=== PATIENT | male | born 1935 | race Caucasian/White ===

== ENCOUNTER 2017-03-24 08:20 | Inpatient (IN) | payer OTHER ==
[2017-03-18 12:28] LABS: BASOPHILS % 0.6 % (0.0-1.0); EOSINOPHILS # (AUTO) 0.2 (0.0-0.4); HEMOGLOBIN 10.1 g/dL (14.0-18.0); LYMPHOCYTES # (AUTO) 1.2 (1.0-3.2); LYMPHOCYTES % 23.7 % (18.0-39.1); MEAN CORPUSCULAR HEMOGLOBIN 39.9 pg (28-32); MEAN CORPUSCULAR HGB CONC 37.4 g/dL (31-35); MEAN CORPUSCULAR VOLUME 106.7 fL (81-99); MONOCYTES # (AUTO) 0.4 (0.2-0.8); MONOCYTES % 8.5 % (4.4-11.3); NEUTROPHILS # (AUTO) 3.2 (2.1-6.9); PLATELET COUNT 177 x10e3/uL (140-360); RED BLOOD COUNT 2.53 x10e6/uL (4.3-5.7); RED CELL DISTRIBUTION WIDTH 12.1 % (11.7-14.4)
[2017-03-18 12:45] LABS: ANION GAP 11.7 mmol/L (8-16); BLOOD UREA NITROGEN 11 mg/dL (7-26); BUN/CREATININE RATIO 13 (6-25); CALCIUM 9.6 mg/dL (8.4-10.2); CARBON DIOXIDE 30 mmol/L (22-29); CHLORIDE 105 mmol/L (98-107); CREATININE, SERUM 0.87 mg/dL (0.72-1.25); EST GLOMERULAR FILTRATION RATE > 60 ML/MIN (60-); GLUCOSE 132 mg/dL (74-118); POTASSIUM 4.7 mmol/L (3.5-5.1); SODIUM 142 mmol/L (136-145)
--- NOTE | 2017-03-18 13:00 | Diagnostic Imaging Report ---
PROCEDURE: Frontal and lateral views of the chest. COMPARISON: None. INDICATIONS: PREOPERATIVE CHEST XRAY FOR FISTULA REPAIR FINDINGS: Lines/tubes: None. Lungs: Limited by rotation and shallow inspiration. There is no evidence of pneumonia or pulmonary edema. Pleura: There is no pleural effusion or pneumothorax. Heart and mediastinum: Cardiac silhouette is mildly enlarged. Bones: No acute bony abnormality. Degenerative changes of the thoracic spine. IMPRESSION: 1. No acute cardiopulmonary disease. Dictated by: Robin Monroe M.D. on 03/18/2017 at 13:07 Electronically approved by: Robin Monroe M.D. on 03/18/2017 at 13:07
[~2017-03-24] VITALS: Ht 180.3 cm; Wt 103.5 kg
[2017-03-24] VITALS (26 sets, daily range): BP systolic 88–125; BP diastolic 46–66
[~2017-03-24 08:20] MED LIST: ACYCLOVIR200 MG PO; DOXAZOSIN MESYLA2 MG PO; DOXAZOSIN MESYLA8 MG PO; HEPARIN SOD/SOD CHLORIDE 0 ML ONE; LISINOPRIL10 MG PO; RANITIDINE HCL150 MG PO
[2017-03-24] MEDS: SODIUM CHLORIDE 0.9% 250ML IRRIG IR SCH ×3 (14:45→22:58)
[2017-03-24] MEDS ORDERED: ONDANSETRON HCL INJ 2 MG/ML VIAL IV PRN (14:45)
[2017-03-24] MEDS: PANTOPRAZOLE 40 MG 10ML VIAL IV SCH (15:00)
[2017-03-24] MEDS ORDERED: FENTANYL CITRATE/PF 100MCG/2 ML INJ ONE ×2 (15:26→18:32)
[2017-03-24] MEDS ORDERED: DORZOLAMIDE-TIM10 ML OP (16:57)
[2017-03-24] MEDS ORDERED: BRIMONIDINE TART5 ML OP (16:57)
[2017-03-24] MEDS ORDERED: LATANOPROST2.5 ML OP (16:57)
[2017-03-24] MEDS: PIPER-TAZ 3.375 GM 50 ML IV SCH ×2 (17:16→23:40)
[2017-03-24] MEDS: SODIUM CHLORIDE 0.9% 1000ML 1,000 ML IV SCH ×2 (17:16→23:19)
[2017-03-24] MEDS: HYDROMORPHONE 1MG/1ML INJ IV PRN ×2 (17:16→23:50)
[2017-03-24] MEDS ORDERED: DEXAMETHASONE SOD PHOS INJ 4 MG/ML VIAL ONE (18:04)
[2017-03-24] MEDS ORDERED: EPHEDRINE SULFATE INJ 50 MG/10 ML SYR ONE (18:04)
[2017-03-24] MEDS ORDERED: PHENYLEPHRINE HCL 1% 10 MG/ML VIAL ONE (18:04)
[2017-03-24] MEDS ORDERED: ONDANSETRON HCL INJ 2 MG/ML VIAL ONE (18:04)
[2017-03-24] MEDS ORDERED: CEFOXITIN SOD 1 GM VIAL ONE (18:04)
[2017-03-24] MEDS ORDERED: PROPOFOL IV EMULSION 10 MG/ML 20 ML VIAL ONE (18:04)
[2017-03-24] MEDS ORDERED: ROCURONIUM BROMIDE 10 MG/ML 5ML VIAL ONE (18:04)
[2017-03-24] MEDS ORDERED: SEVOFLURANE INHAL SOLN 250 ML PEN BTL ONE (18:04)
[2017-03-24] MEDS ORDERED: LIDOCAINE HCL 2% LOCAL INJ 5 ML SDV VIAL INJ ONE (18:04)
[2017-03-24] MEDS ORDERED: VASOPRESSIN INJ 20 UNIT/ML VIAL ONE (18:04)
[2017-03-24] MEDS: ACETAMINOPHEN 1000 MG/100 ML IV PRN (19:09)
[2017-03-24] MEDS: DORZOLAMIDE/TIMOLOL (OPTH SOL) 10 ML DRPETTE OP SCH (21:48)
[2017-03-24] MEDS: BRIMONIDINE TARTRATE (OPTH) 5 ML LIQD OP SCH (21:48)
[2017-03-24] MEDS: LATANOPROST(OPTH) 2.5 ML BTL OP SCH (21:48)
[2017-03-24] MEDS ORDERED: METOPROLOL TARTRATE INJ 1 MG/ML VIAL IV ONE (22:00)
[2017-03-25] VITALS (90 sets, daily range): BP systolic 83–121; BP diastolic 29–73
--- NOTE | 2017-03-25 01:46 | Consultation ---
DATE OF CONSULTATION: March 24, 2017 colovesical CARDIOLOGY CONSULTATION INDICATIONS: Tachycardia. HISTORY: Mr. 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 He is currently n.p.o. in the ICU when he started developing bouts of supraventricular tachycardia. Heart rates as high as 165 beats per minute, narrow complex. He is currently in moderate amount of pain from his surgical site. He denies any palpitations. He has no past cardiac history. He underwent a stress test by Dr. Jenkins earlier this year, which was normal. He has no history of supraventricular tachycardia. PAST SURGICAL HISTORY: As listed above. Additionally, the patient has had cholecystectomy and tonsillectomy. PAST MEDICAL HISTORY: Hypertension, benign prostatic hypertrophy, glaucoma. SOCIAL HISTORY: No smoking or drinking. DRUG ALLERGIES: IV CONTRAST DYE. REVIEW OF SYSTEMS: Negative except as dictated in the history of present illness. PHYSICAL EXAMINATION: VITAL SIGNS: Afebrile, heart rate 105, blood pressure is 100/72. CARDIOVASCULAR: Regular rhythm. Tachycardic. No murmurs. LUNGS: Clear to auscultation bilaterally. ABDOMEN: Soft, mildly distended with hypoactive bowel sounds. 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 LABORATORY DATA: Reviewed. ASSESSMENT: Supraventricular tachycardia. RECOMMENDATIONS: Echocardiogram to evaluate structural heart disease or if this has been done recently in Dr. Jenkins's office, we will review the same. At this point, IV metoprolol will be started for rate and rhythm control. Blood pressure will be monitored closely. Currently, the patient is hemodynamically stable and doing well in his postoperative period. We will keep a close eye on his telemetry when he is moved to the floor. He should remain on telemetry. Further recommendation based on response to beta blockers. Overall prognosis is fair. I thank Dr. Pablo for this consultation. Job#: [id number]
[2017-03-25] MEDS: SODIUM CHLORIDE 0.9% 1000ML 1,000 ML IV SCH ×3 (04:40→17:15)
[2017-03-25] MEDS: SODIUM CHLORIDE 0.9% 250ML IRRIG IR SCH ×5 (04:40→17:57)
[2017-03-25] MEDS: PIPER-TAZ 3.375 GM 50 ML IV SCH ×3 (05:35→17:28)
[2017-03-25 06:04] LABS: BASOPHILS % 0.1 % (0.0-1.0); HEMATOCRIT 25.1 % (38.2-49.6); HEMOGLOBIN 10.6 g/dL (14.0-18.0); LYMPHOCYTES # (AUTO) 0.7 (1.0-3.2); LYMPHOCYTES % 6.5 % (18.0-39.1); MEAN CORPUSCULAR HEMOGLOBIN 43.3 pg (28-32); MEAN CORPUSCULAR HGB CONC 42.2 g/dL (31-35); MEAN CORPUSCULAR VOLUME 102.4 fL (81-99); MONOCYTES % 8.6 % (4.4-11.3); NEUTROPHILS # (AUTO) 9.7 (2.1-6.9); NEUTROPHILS % 84.5 % (38.7-80.0); PLATELET COUNT 171 x10e3/uL (140-360); RED BLOOD COUNT 2.45 x10e6/uL (4.3-5.7); RED CELL DISTRIBUTION WIDTH 16.7 % (11.7-14.4)
[2017-03-25 06:33] LABS: CALCIUM 7.8 mg/dL (8.4-10.2); CREATININE, SERUM 1.48 mg/dL (0.72-1.25)
[2017-03-25 07:26] LABS: RBC MORPHOLOGY COMMENT NORMAL
[2017-03-25 07:27] LABS: ANISOCYTOSIS SLIGHT; HYPOCHROMASIA SLIGHT; PLATELET ESTIMATE ADEQUATE; PLATELET MORPHOLOGY COMMENT NORMAL
[2017-03-25] MEDS: METOPROLOL TARTRATE INJ 1 MG/ML VIAL IV PRN ×2 (09:28→22:11)
[2017-03-25] MEDS: BRIMONIDINE TARTRATE (OPTH) 5 ML LIQD OP SCH ×2 (10:00→16:28)
[2017-03-25] MEDS: DORZOLAMIDE/TIMOLOL (OPTH SOL) 10 ML DRPETTE OP SCH ×2 (10:00→16:28)
[2017-03-25] MEDS: ACETAMINOPHEN 1000 MG/100 ML IV PRN (13:42)
[2017-03-25] MEDS: PANTOPRAZOLE 40 MG 10ML VIAL IV SCH (15:54)
[2017-03-25] MEDS: LATANOPROST(OPTH) 2.5 ML BTL OP SCH (19:40)
[2017-03-25] MEDS: HYDROMORPHONE 1MG/1ML INJ IV PRN ×2 (19:41→23:45)
[2017-03-25] MEDS ORDERED: ADENOSINE 6 MG/2 ML VIAL IV PRN (23:00)
[2017-03-26] VITALS (75 sets, daily range): BP systolic 81–151; BP diastolic 42–67
[2017-03-26] MEDS: SODIUM CHLORIDE 0.9% 250ML IRRIG IR SCH ×7 (00:28→23:04)
[2017-03-26] MEDS: PIPER-TAZ 3.375 GM 50 ML IV SCH ×5 (00:28→23:04)
[2017-03-26] MEDS: SODIUM CHLORIDE 0.9% 1000ML 1,000 ML IV SCH ×5 (00:28→23:05)
[2017-03-26] MEDS: HYDROMORPHONE 1MG/1ML INJ IV PRN (05:16)
[2017-03-26 06:03] LABS: HEMOGLOBIN 9.6 g/dL (14.0-18.0); LYMPHOCYTES # (AUTO) 0.7 (1.0-3.2); LYMPHOCYTES % 5.6 % (18.0-39.1); MEAN CORPUSCULAR HEMOGLOBIN 43.8 pg (28-32); MEAN CORPUSCULAR HGB CONC 41.9 g/dL (31-35); MEAN CORPUSCULAR VOLUME 104.6 fL (81-99); MONOCYTES # (AUTO) 1.1 (0.2-0.8); MONOCYTES % 8.6 % (4.4-11.3); NEUTROPHILS # (AUTO) 10.6 (2.1-6.9); NEUTROPHILS % 85.3 % (38.7-80.0); PLATELET COUNT 152 x10e3/uL (140-360); RED BLOOD COUNT 2.19 x10e6/uL (4.3-5.7); RED CELL DISTRIBUTION WIDTH 16.4 % (11.7-14.4)
--- NOTE | 2017-03-26 06:03 | Progress Note ---
DATE: March 25, 2017 CARDIOLOGY PROGRESS NOTE SUBJECTIVE: No new complaints. OBJECTIVE VITALS: Temperature 98.2, heart rate 95, respiratory rate 18, blood pressure 106/32, and O2 sat 99% on 2 L per nasal cannula. GENERAL: No acute distress. Alert. NECK: No JVD. CHEST: Clear to auscultation. Decreased breath sounds. CARDIOVASCULAR: Regular rate and rhythm. Normal S1 and S2. NG tube in place. ABDOMEN: Distended. EXTREMITIES: Trace edema. CARDIOVASCULAR MEDICATIONS: Reviewed. Metoprolol tartrate 5 mg q.6 h. IV p.r.n. for elevated heart rate. STUDIES: Reviewed. White blood cells 9.4, hemoglobin 10.6 and platelets 171,000. Creatinine 1.4, potassium 5, bicarbonate 20, glucose 95. Telemetry is normal sinus rhythm. ASSESSMENT 1. Supraventricular tachycardia, paroxysmal: Currently in sinus rhythm. 2. Hypertension. 3. BPH. 4. Glaucoma. 5. Acute kidney injury. 6. Diverticulitis and possible colovesical fistula: Status post partial resection of the colon. RECOMMENDATIONS: Continue beta blaise. If recurrent PSVT, can use p.r.n. adenosine. Keep on telemetry. Job#: [id number] MATIAS
[2017-03-26 06:07] LABS: HEMATOCRIT 22.9 % (38.2-49.6)
[2017-03-26 06:23] LABS: ANION GAP 15.6 mmol/L (8-16); CREATININE, SERUM 1.43 mg/dL (0.72-1.25); POTASSIUM 4.6 mmol/L (3.5-5.1)
[2017-03-26] MEDS ORDERED: HYDROMORPHONE 1MG/1ML INJ IV PRN (06:45)
[2017-03-26 07:25] LABS: BASOPHILS % 0.1 % (0.0-1.0); HEMATOCRIT 23.2 % (38.2-49.6); HEMOGLOBIN 9.1 g/dL (14.0-18.0); LYMPHOCYTES % 7.6 % (18.0-39.1); MEAN CORPUSCULAR HEMOGLOBIN 41.4 pg (28-32); MEAN CORPUSCULAR HGB CONC 39.2 g/dL (31-35); MEAN CORPUSCULAR VOLUME 105.5 fL (81-99); MONOCYTES # (AUTO) 1.2 (0.2-0.8); MONOCYTES % 9.2 % (4.4-11.3); NEUTROPHILS # (AUTO) 10.5 (2.1-6.9); NEUTROPHILS % 82.2 % (38.7-80.0); PLATELET COUNT 136 x10e3/uL (140-360); RED CELL DISTRIBUTION WIDTH 16.3 % (11.7-14.4)
[2017-03-26] MEDS: DORZOLAMIDE/TIMOLOL (OPTH SOL) 10 ML DRPETTE OP SCH ×2 (09:36→17:18)
[2017-03-26] MEDS: BRIMONIDINE TARTRATE (OPTH) 5 ML LIQD OP SCH ×2 (09:36→17:18)
[2017-03-26 09:46] LABS: BAND NEUTROPHILS % (MANUAL) 2 %; LYMPHOCYTES % (MANUAL) 12 % (19-48); NEUTROPHILS % (MANUAL) 86 % (40-74)
[2017-03-26 09:47] LABS: PLATELET ESTIMATE ADEQUATE; PLATELET MORPHOLOGY COMMENT NORMAL
--- NOTE | 2017-03-26 17:10 | Diagnostic Imaging Report ---
PROCEDURE: A single AP view of the chest. COMPARISON: None. INDICATIONS: DESATURATION OF BLOOD FINDINGS: Lines/tubes: Enteric tube is noted below the left hemidiaphragm.. Lungs: The lungs are hypoinflated. Patchy right basal opacities, likely reflect atelectasis. There is partial obscuration of the left hemidiaphragm, which may represent left pleural effusion and associated atelectasis or consolidation. Pleura: No right pleural effusion. Heart and mediastinum: Mildly prominent cardiac silhouette, partly due to AP projection Bones: No acute bony abnormality. IMPRESSION: 1. hypoinflated lungs with right basilar atelectatic changes. Likely left pleural effusion and associated atelectasis or consolidation. Sudarshan Woods M.D. Dictated by: Sudarshan Woods M.D. on 03/26/2017 at 17:16 Electronically approved by: Sudarshan Woods M.D. on 03/26/2017 at 17:16
[2017-03-26] MEDS: PANTOPRAZOLE 40 MG 10ML VIAL IV SCH (17:18)
[2017-03-26] MEDS: CHLORASEPTIC SPRAY 177 ML BTL MM PRN (19:37)
[2017-03-26] MEDS: LATANOPROST(OPTH) 2.5 ML BTL OP SCH (20:23)
[2017-03-26] MEDS ORDERED: BISACODYL 10 MG SUPP PR ONE (21:00)
[2017-03-27] VITALS (32 sets, daily range): BP systolic 121–161; BP diastolic 41–77
--- NOTE | 2017-03-27 00:32 | Progress Note ---
DATE: March 26, 2017 CARDIOLOGY PROGRESS NOTE SUBJECTIVE: Still with episodes of confusion. NG tube in place. OBJECTIVE VITAL SIGNS: Temperature 99.3, heart rate 91, respiratory rate 18, blood pressure 126/51, O2 sat 90% to 2-L per minute nasal cannula. GENERAL: No acute distress. NG tube in place. CHEST: Coarse breath sounds, bilateral bases. CARDIOVASCULAR: Regular rate and rhythm. Normal S1 and S2. No S3, no S4. ABDOMEN: Distended. No rebound or guarding. EXTREMITIES: Trace edema. CARDIOVASCULAR MEDICATIONS: Saline IV drip. Metoprolol tartrate 4 mg q.6 h p.r.n. STUDIES: Reviewed. White blood cells 12.7, hemoglobin 9.1, platelets 136,000. Creatinine 1.43, stable. Bicarbonate 19 with a chloride of 111. Sodium 141, potassium 4.6, magnesium 1.9. Telemetry, sinus rhythm. ASSESSMENT 1. Paroxysmal supraventricular tachycardia, currently normal sinus rhythm. 2. Hypertension. 3. BPH. 4. Glaucoma. 5. Acute kidney injury. 6. Diverticulitis, possible colovesicular fistula, status post partial resection of colon. RECOMMENDATIONS: Continue current p.r.n. beta-blockers, as well as p.r.n. adenosine. If additional hydration 24 to 48 hours, consider switching to 1/2 NS due to developing hyperchloremic acidosis. Defer to surgery/primary service of switching to oral intake. Job#: [id number] CQ
[2017-03-27] MEDS: SODIUM CHLORIDE 0.9% 1000ML 1,000 ML IV SCH ×6 (00:44→22:48)
[2017-03-27] MEDS: METOPROLOL TARTRATE INJ 1 MG/ML VIAL IV PRN ×2 (00:44→10:10)
[2017-03-27] MEDS: SODIUM CHLORIDE 0.9% 250ML IRRIG IR SCH ×3 (03:41→10:18)
[2017-03-27 06:14] LABS: BASOPHILS % 0.1 % (0.0-1.0); EOSINOPHILS % 0.1 % (0.0-6.0); HEMATOCRIT 19.2 % (38.2-49.6); HEMOGLOBIN 8.2 g/dL (14.0-18.0); LYMPHOCYTES # (AUTO) 0.8 (1.0-3.2); MEAN CORPUSCULAR HEMOGLOBIN 45.6 pg (28-32); MEAN CORPUSCULAR HGB CONC 42.7 g/dL (31-35); MEAN CORPUSCULAR VOLUME 106.7 fL (81-99); MONOCYTES # (AUTO) 0.8 (0.2-0.8); MONOCYTES % 8.4 % (4.4-11.3); NEUTROPHILS # (AUTO) 7.9 (2.1-6.9); NEUTROPHILS % 82.9 % (38.7-80.0); PLATELET COUNT 137 x10e3/uL (140-360); RED CELL DISTRIBUTION WIDTH 16.4 % (11.7-14.4)
[2017-03-27 06:30] LABS: ANION GAP 14.1 mmol/L (8-16); BLOOD UREA NITROGEN 22 mg/dL (7-26); BUN/CREATININE RATIO 19 (6-25); CALCIUM 8.4 mg/dL (8.4-10.2); CARBON DIOXIDE 23 mmol/L (22-29); CHLORIDE 113 mmol/L (98-107); CREATININE, SERUM 1.15 mg/dL (0.72-1.25); EST GLOMERULAR FILTRATION RATE > 60 ML/MIN (60-); GLUCOSE 132 mg/dL (74-118); POTASSIUM 4.1 mmol/L (3.5-5.1); SODIUM 146 mmol/L (136-145)
[2017-03-27] MEDS: PIPER-TAZ 3.375 GM 50 ML IV SCH ×3 (06:33→17:41)
--- NOTE | 2017-03-27 07:31 | Progress Note ---
DATE: March 27, 2017 CARDIOLOGY PROGRESS NOTE SUBJECTIVE: No new complaints. OBJECTIVE VITALS: Temperature 98 degrees, heart rate 104, respiratory rate 18, blood pressure 151/68, O2 sat 97% on room air. GENERAL: No acute distress. Somewhat confused. NG tube is in place. CHEST: Clear to auscultation. CARDIOVASCULAR: Regular rate and rhythm. Normal S1 and S2. Telemetry shows sinus rhythm. ABDOMEN: Soft. Covered with binder and dressings. EXTREMITIES: Trace edema. CARDIOVASCULAR MEDICATIONS: Reviewed. 1. Metoprolol tartrate 5 mg q.6 h. IV p.r.n. 2. Adenosine 6 mg IV p.r.n. 3. Antibiotics. STUDIES: For today, CBC is currently pending. Creatinine is 1.1. Sodium 146 and trending up from 141 yesterday, potassium 4.1, chloride 113, bicarbonate 23, glucose 132. ASSESSMENT 1. Mild dehydration. 2. Hypertension. 3. Paroxysmal supraventricular tachycardia, currently in sinus rhythm. 4. BPH. 5. Glaucoma. 6. Acute kidney injury. 7. Diverticulitis and possible colovesical fistula, status post partial colon resection. RECOMMENDATIONS: Continue current cardioversion medications. Consider free water. Job#: [id number] MATIAS
[2017-03-27 07:35] LABS: ANISOCYTOSIS SLIGHT; HYPOCHROMASIA SLIGHT; PLATELET ESTIMATE SLIGHTLY DECREASED; PLATELET MORPHOLOGY COMMENT FEW LARGE; RBC MORPHOLOGY COMMENT NORMAL
[2017-03-27] MEDS: CHLORASEPTIC SPRAY 177 ML BTL MM PRN (09:00)
[2017-03-27] MEDS ORDERED: BISACODYL 10 MG SUPP PR ONE (09:00)
[2017-03-27] MEDS ORDERED: SODIUM CHLORIDE 0.9% 250ML 250 ML ONE (09:02)
[2017-03-27] MEDS: DORZOLAMIDE/TIMOLOL (OPTH SOL) 10 ML DRPETTE OP SCH ×2 (09:54→17:22)
[2017-03-27] MEDS: BRIMONIDINE TARTRATE (OPTH) 5 ML LIQD OP SCH ×2 (10:00→17:22)
[2017-03-27 14:00] LABS: HEMATOCRIT 25.8 % (38.2-49.6); HEMOGLOBIN 8.7 g/dL (14.0-18.0)
[2017-03-27] MEDS: PANTOPRAZOLE 40 MG 10ML VIAL IV SCH (14:33)
[2017-03-27] MEDS ORDERED: HYDROMORPHONE 2MG/ML INJ IV PRN (20:45)
[2017-03-27] MEDS: LATANOPROST(OPTH) 2.5 ML BTL OP SCH (21:00)
[2017-03-28] VITALS (26 sets, daily range): BP systolic 123–170; BP diastolic 54–104
[2017-03-28] MEDS: PIPER-TAZ 3.375 GM 50 ML IV SCH ×5 (00:10→23:45)
[2017-03-28] MEDS: SODIUM CHLORIDE 0.9% 1000ML 1,000 ML IV SCH ×3 (05:15→15:10)
[2017-03-28] MEDS ORDERED: POTASSIUM CHLORIDE 20MEQ/100ML 200 ML IV PRN (08:15)
[2017-03-28] MEDS ORDERED: MAGNESIUM SULFATE 2GM/50ML 50 ML IV PRN (08:15)
[2017-03-28] MEDS ORDERED: POTASSIUM CHLORIDE 20MEQ/100ML 400 ML IV PRN (08:15)
[2017-03-28 08:41] LABS: ANION GAP 11.4 mmol/L (8-16); BLOOD UREA NITROGEN 12 mg/dL (7-26); BUN/CREATININE RATIO 16 (6-25); CALCIUM 8.4 mg/dL (8.4-10.2); CARBON DIOXIDE 24 mmol/L (22-29); CHLORIDE 111 mmol/L (98-107); CREATININE, SERUM 0.77 mg/dL (0.72-1.25); EST GLOMERULAR FILTRATION RATE > 60 ML/MIN (60-); GLUCOSE 113 mg/dL (74-118); MAGNESIUM 1.7 MG/DL (1.3-2.1); POTASSIUM 3.4 mmol/L (3.5-5.1); SODIUM 143 mmol/L (136-145)
[2017-03-28] MEDS: METOPROLOL TARTRATE INJ 1 MG/ML VIAL IV PRN (08:42)
[2017-03-28] MEDS: BRIMONIDINE TARTRATE (OPTH) 5 ML LIQD OP SCH ×2 (08:42→17:40)
[2017-03-28] MEDS: DORZOLAMIDE/TIMOLOL (OPTH SOL) 10 ML DRPETTE OP SCH ×2 (08:42→17:40)
[2017-03-28 09:20] LABS: BASOPHILS % 0.2 % (0.0-1.0); EOSINOPHILS # (AUTO) 0.1 (0.0-0.4); EOSINOPHILS % 2.2 % (0.0-6.0); HEMATOCRIT 19.1 % (38.2-49.6); HEMOGLOBIN 8.9 g/dL (14.0-18.0); LYMPHOCYTES # (AUTO) 0.8 (1.0-3.2); LYMPHOCYTES % 13.9 % (18.0-39.1); MEAN CORPUSCULAR HEMOGLOBIN 45.6 pg (28-32); MEAN CORPUSCULAR HGB CONC 46.6 g/dL (31-35); MEAN CORPUSCULAR VOLUME 97.9 fL (81-99); MONOCYTES # (AUTO) 0.5 (0.2-0.8); MONOCYTES % 9.1 % (4.4-11.3); NEUTROPHILS # (AUTO) 4.3 (2.1-6.9); NEUTROPHILS % 74.1 % (38.7-80.0); PLATELET COUNT 145 x10e3/uL (140-360); RED BLOOD COUNT 1.95 x10e6/uL (4.3-5.7); RED CELL DISTRIBUTION WIDTH 15.9 % (11.7-14.4)
[2017-03-28 09:47] LABS: EOSINOPHILS % (MANUAL) 2 % (0-7); LYMPHOCYTES % (MANUAL) 21 % (19-48); MONOCYTES % (MANUAL) 4 % (3.4-9.0); NEUTROPHILS % (MANUAL) 72 % (40-74)
[2017-03-28 09:48] LABS: ANISOCYTOSIS SLIGHT; HYPOCHROMASIA SLIGHT; PLATELET ESTIMATE SLIGHTLY DECREASED; PLATELET MORPHOLOGY COMMENT FEW GIANT; RBC MORPHOLOGY COMMENT NORMAL
--- NOTE | 2017-03-28 09:51 | Progress Note ---
DATE: March 28, 2017 CARDIOLOGY PROGRESS NOTE SUBJECTIVE: NG tube discontinued. Trial ongoing. Lytes for today are pending. Had NSVT short run on tele. Beta blaise is changed to schedule for increasing blood pressure and NSVT. OBJECTIVE VITAL SIGNS: Temperature 99.5, heart rate 80, respiratory rate 19 blood pressure 146/76, O2 sat 95% on 2 liters per minute per nasal cannula. GENERAL: No acute distress. Alert. NECK: No JVD. CHEST: Clear to auscultation. CARDIOVASCULAR: Regular rate and rhythm. Normal S1 and S2. ABDOMEN: Distended. No rebound. No guarding. EXTREMITIES: Trace edema. CARDIOVASCULAR MEDICATIONS: Reviewed. P.r.n. adenosine bisoprolol now scheduled at 5 mg every 8 hours IV. ASSESSMENT 1. Nonsustained ventricular tachycardia. 2. Paroxysmal supraventricular tachycardia. 3. Dehydration. 4. Hypertension. 5. Benign prostatic hypertrophy. 6. Glaucoma. 7. Acute kidney injury. 8. Diverticulitis and possible colovesicular fistula status post partial colon resection on postop recovery. RECOMMENDATIONS: Check electrolytes today and replete as needed. Instructions discussed with nurse. Schedule beta blaise. Keep on telemetry. Job#: [id number] DYER
[2017-03-28] MEDS: METOPROLOL TARTRATE INJ 1 MG/ML VIAL IV SCH ×2 (15:59→22:15)
[2017-03-28] MEDS: PANTOPRAZOLE 40 MG 10ML VIAL IV SCH (15:59)
[2017-03-28] MEDS ORDERED: FUROSEMIDE INJ 10 MG/ML 4 ML VIAL IV ONE (16:30)
[2017-03-28] MEDS ORDERED: FUROSEMIDE INJ 10 MG/ML 4 ML VIAL ONE (16:31)
[2017-03-28] MEDS: BISACODYL 10 MG SUPP PR SCH (21:00)
[2017-03-28] MEDS: LATANOPROST(OPTH) 2.5 ML BTL OP SCH (21:30)
[2017-03-29] VITALS (13 sets, daily range): BP systolic 106–148; BP diastolic 56–99
[2017-03-29] MEDS: SODIUM CHLORIDE 0.9% 1000ML 1,000 ML IV SCH (00:40)
[2017-03-29] MEDS: PIPER-TAZ 3.375 GM 50 ML IV SCH ×4 (05:35→23:45)
[2017-03-29] MEDS: METOPROLOL TARTRATE INJ 1 MG/ML VIAL IV SCH ×3 (05:35→23:45)
[2017-03-29] MEDS: BISACODYL 10 MG SUPP PR SCH (07:39)
[2017-03-29] MEDS: DORZOLAMIDE/TIMOLOL (OPTH SOL) 10 ML DRPETTE OP SCH ×2 (09:00→17:08)
[2017-03-29] MEDS: BRIMONIDINE TARTRATE (OPTH) 5 ML LIQD OP SCH ×2 (09:00→17:08)
[2017-03-29 09:27] LABS: ANION GAP 11.8 mmol/L (8-16); BLOOD UREA NITROGEN 12 mg/dL (7-26); BUN/CREATININE RATIO 14 (6-25); CALCIUM 8.6 mg/dL (8.4-10.2); CARBON DIOXIDE 30 mmol/L (22-29); CHLORIDE 104 mmol/L (98-107); CREATININE, SERUM 0.86 mg/dL (0.72-1.25); EST GLOMERULAR FILTRATION RATE > 60 ML/MIN (60-); GLUCOSE 135 mg/dL (74-118); MAGNESIUM 1.6 MG/DL (1.3-2.1); POTASSIUM 3.8 mmol/L (3.5-5.1); SODIUM 142 mmol/L (136-145)
[2017-03-29 09:36] LABS: BASOPHILS % 0.4 % (0.0-1.0); EOSINOPHILS # (AUTO) 0.1 (0.0-0.4); EOSINOPHILS % 1.7 % (0.0-6.0); HEMATOCRIT 30.9 % (38.2-49.6); LYMPHOCYTES # (AUTO) 0.8 (1.0-3.2); LYMPHOCYTES % 15.6 % (18.0-39.1); MEAN CORPUSCULAR HEMOGLOBIN 32.2 pg (28-32); MEAN CORPUSCULAR HGB CONC 33.3 g/dL (31-35); MEAN CORPUSCULAR VOLUME 96.6 fL (81-99); MONOCYTES # (AUTO) 0.6 (0.2-0.8); MONOCYTES % 10.6 % (4.4-11.3); NEUTROPHILS # (AUTO) 3.7 (2.1-6.9); NEUTROPHILS % 71.3 % (38.7-80.0); PLATELET COUNT 144 x10e3/uL (140-360); RED CELL DISTRIBUTION WIDTH 14.5 % (11.7-14.4)
[2017-03-29 09:38] LABS: HEMOGLOBIN 10.3 g/dL (14.0-18.0)
[2017-03-29] MEDS: HYDROCODONE/APAP 7.5MG-325MG 1 EA TAB PO PRN (10:15)
[2017-03-29] MEDS: MORPHINE SULFATE 5 MG/ML VIAL IV PRN (16:59)
[2017-03-29] MEDS: PANTOPRAZOLE 40 MG 10ML VIAL IV SCH (17:11)
--- NOTE | 2017-03-29 17:15 | Progress Note ---
DATE: March 29, 2017 SUBJECTIVE: He is without any complaints. He denies any chest pain or shortness of breath. OBJECTIVE VITAL SIGNS: Temperature 98.2, pulse 84, respiratory rate 20, blood pressure 129/75, oxygen saturation 100% on nasal cannula. GENERAL: Alert and oriented x3, resting comfortably in bed. Family at the bedside. NECK: Supple with no JVD noted. CHEST: Clear to auscultation throughout. No wheezing, no rhonchi or crackles. CARDIOVASCULAR: Regular rate and rhythm. Normal S1 and S2. Telemetry reflects normal sinus rhythm. ABDOMEN: Rounded, nontender. Normoactive bowel sounds. LOWER EXTREMITIES: Trace edema bilaterally. CARDIOVASCULAR MEDICATIONS 1. Metoprolol 5 mg IV q.8 h. 2. Adenosine 6 mg IV once p.r.n. LABORATORY DATA: WBC 5.20, hemoglobin 10.3, hematocrit 30.9, platelets 144,000, sodium 142, potassium 3.8, BUN 12, creatinine 0.86, glucose 135, magnesium 1.6, calcium 8.6. ASSESSMENT 1. Non-sustained ventricular tachycardia. 2. Paroxysmal supraventricular tachycardia. 3. Dehydration. 4. Hypertension. 5. Benign prostatic hypertrophy. 6. Glaucoma. 7. Acute kidney injury with improved creatinine. 8. Diverticulitis and possible colovesical fistula, status post partial colon resection on postop recovery. RECOMMENDATIONS: Continue with the above list of cardiac medications. Continue to monitor electrolytes. Maintain on telemetry. Blood pressure is acceptable for age. Will continue to follow. Dictated by: Celia Yousif NP Job#: [id number]
[2017-03-29] MEDS: LATANOPROST(OPTH) 2.5 ML BTL OP SCH (21:20)
[2017-03-30] VITALS: BP 135/63
[2017-03-30] MEDS: MORPHINE SULFATE 5 MG/ML VIAL IV PRN ×2 (00:30→22:28)
[2017-03-30 04:00] VITALS: BP 148/70
[2017-03-30] MEDS: HYDROCODONE/APAP 7.5MG-325MG 1 EA TAB PO PRN ×2 (04:14→12:12)
[2017-03-30] MEDS: PIPER-TAZ 3.375 GM 50 ML IV SCH ×4 (05:34→23:45)
[2017-03-30] MEDS: METOPROLOL TARTRATE INJ 1 MG/ML VIAL IV SCH ×3 (06:06→21:08)
[2017-03-30 08:38] VITALS: BP 159/72
[2017-03-30] MEDS: BRIMONIDINE TARTRATE (OPTH) 5 ML LIQD OP SCH ×2 (08:55→17:10)
[2017-03-30] MEDS: DORZOLAMIDE/TIMOLOL (OPTH SOL) 10 ML DRPETTE OP SCH ×2 (08:56→17:10)
--- NOTE | 2017-03-30 10:07 | Progress Note ---
DATE: March 30, 2017 CARDIOLOGY PROGRESS NOTE: SUBJECTIVE: The patient is sleeping comfortably. Denies any chest pain or palpitations. OBJECTIVE VITAL SIGNS: Afebrile. Heart rate 79. Blood pressure is 148/70. CARDIOVASCULAR: Regular rhythm. Systolic murmur. No gallops. LUNGS: Occasional fine crackles at+ both lung bases. ABDOMEN: Is distended. Telemetry shows sinus rhythm. Hemoglobin is 10.3 this morning. Serum creatinine is normal. ASSESSMENT: 1. Paroxysmal supraventricular tachycardia. 2. Nonsustained ventricular tachycardia. PLAN: Maintain on telemetry. The patient is hemodynamically stable. Continue intravenous beta blaise. Job#: [id number]
[2017-03-30 12:00] VITALS: BP 142/69
[2017-03-30] MEDS: PANTOPRAZOLE 40 MG 10ML VIAL IV SCH (14:05)
[2017-03-30 16:22] VITALS: BP 161/83
[2017-03-30 20:00] VITALS: BP_SYST 105; BP_SYST 134; BP_DIAS 58; BP_DIAS 65
[2017-03-30] MEDS: LATANOPROST(OPTH) 2.5 ML BTL OP SCH (21:08)
[2017-03-31] VITALS: BP 142/62
[2017-03-31 04:00] VITALS: BP 113/65
[2017-03-31] MEDS: PIPER-TAZ 3.375 GM 50 ML IV SCH ×3 (06:03→17:36)
[2017-03-31] MEDS: METOPROLOL TARTRATE INJ 1 MG/ML VIAL IV SCH ×3 (06:03→21:54)
[2017-03-31 07:03] VITALS: BP 138/64
[2017-03-31] MEDS: BRIMONIDINE TARTRATE (OPTH) 5 ML LIQD OP SCH ×2 (09:14→17:36)
[2017-03-31] MEDS: DORZOLAMIDE/TIMOLOL (OPTH SOL) 10 ML DRPETTE OP SCH ×2 (09:14→17:36)
[2017-03-31 11:30] VITALS: BP 129/60
[2017-03-31] MEDS: PANTOPRAZOLE 40 MG 10ML VIAL IV SCH (14:23)
[2017-03-31] MEDS: HYDROCODONE/APAP 7.5MG-325MG 1 EA TAB PO PRN (14:24)
[2017-03-31 16:32] VITALS: BP 129/60
[2017-03-31 20:00] VITALS: BP 147/67
--- NOTE | 2017-03-31 20:46 | Progress Note ---
DATE: March 31, 2017 CARDIOLOGY PROGRESS NOTE SUBJECTIVE: Patient denies chest pain or shortness of breath. OBJECTIVE VITAL SIGNS: Temperature 97.2 degrees, pulse 70, respiratory rate 20, blood pressure 159/60, oxygen saturation 97% on 2 liters nasal cannula. GENERAL: Awake, alert, in no acute distress. LUNGS: Clear to auscultation bilaterally. No wheezes or crackles. CARDIOVASCULAR: Normal rate, regular rhythm. No murmur. Normal S1 and S2. ABDOMEN: Soft. Nontender. EXTREMITIES: No edema. CARDIAC MEDICATIONS: Metoprolol tartrate 5 mg IV q.8 h. LABS: None today. TELEMETRY: Normal sinus rhythm. IMPRESSION 1. Paroxysmal supraventricular tachycardia. 2. Nonsustained ventricular tachycardia. 3. Hypertension. 4. Diverticulitis and possible colovesical fistula, status post partial colon resection. 5. Acute kidney injury, improved. RECOMMENDATIONS: Continue current cardiac medications. Plan to transition to p.o. beta blaise if the patient is tolerating oral intake. Please monitor the patient on telemetry. Continue current cardiac plan of care otherwise. Thank you for this consult. We will continue to follow. Job#: [id number]
[2017-03-31] MEDS: LATANOPROST(OPTH) 2.5 ML BTL OP SCH (21:54)
[2017-04-01] VITALS: BP 141/64
[2017-04-01] MEDS ORDERED: DIPHENHYDRAMINE HCL 25 MG CAP PO ONE (01:15)
[2017-04-01] MEDS: PIPER-TAZ 3.375 GM 50 ML IV SCH ×4 (03:02→17:06)
[2017-04-01] MEDS: MORPHINE SULFATE 5 MG/ML VIAL IV PRN ×2 (03:08→10:42)
[2017-04-01 04:00] VITALS: BP 144/67
[2017-04-01] MEDS: METOPROLOL TARTRATE INJ 1 MG/ML VIAL IV SCH ×2 (06:12→14:56)
[2017-04-01] MEDS: BRIMONIDINE TARTRATE (OPTH) 5 ML LIQD OP SCH (07:59)
[2017-04-01] MEDS: CHLORASEPTIC SPRAY 177 ML BTL MM PRN (07:59)
[2017-04-01] MEDS: DORZOLAMIDE/TIMOLOL (OPTH SOL) 10 ML DRPETTE OP SCH (08:22)
[2017-04-01 08:53] VITALS: BP 152/65
[2017-04-01 12:51] VITALS: BP 146/65
[2017-04-01] MEDS: PANTOPRAZOLE 40 MG 10ML VIAL IV SCH (14:55)
[2017-04-01 16:56] VITALS: BP 156/69
--- NOTE | 2017-04-01 17:45 | Progress Note ---
DATE: April 01, 2017 CARDIOLOGY PROGRESS NOTE SUBJECTIVE: The patient denies chest pain or shortness of breath. He is tolerating oral intake and reports he may go home today. OBJECTIVE VITAL SIGNS: Temperature 98.4 degrees, pulse 72, respiratory rate 20, blood pressure 146/65, oxygen saturation 99% on 1 liter nasal cannula. GENERAL: Awake, alert, in no acute distress. LUNGS: Clear to auscultation bilaterally. No wheezes or crackles. CARDIOVASCULAR: Normal rate, regular rhythm. No murmur. Normal S1 and S2. ABDOMEN: Soft. Nontender. EXTREMITIES: No edema. CARDIAC MEDICATIONS: Metoprolol tartrate 5 mg IV q.8 h. LABS: None today. TELEMETRY: Normal sinus rhythm, occasional PVCs. IMPRESSION 1. Paroxysmal supraventricular tachycardia. 2. Nonsustained ventricular tachycardia. 3. Hypertension. 4. Diverticulosis and possible colovesical fistula, status post partial colon resection. 5. Acute kidney injury, improved. RECOMMENDATIONS: As the patient is now tolerating oral intake, transition metoprolol IV to metoprolol 25 mg p.o. q.12 h. Please monitor the patient on telemetry while admitted. Replete electrolytes. Please have the patient follow up with us in the office in 2 weeks. Thank you for this consult. We will continue to follow. Job#: [id number] GH MTDD
--- NOTE | 2017-05-27 11:49 | Operative Report ---
DATE OF PROCEDURE: March 24, 2017 PREOPERATIVE DIAGNOSIS: Sigmoid diverticulitis with colovesical fistula. POSTOPERATIVE DIAGNOSIS: Sigmoid diverticulitis with colovesical fistula. OPERATION PERFORMED: Exploratory laparotomy, low anterior resection with partial cystectomy. LINOLEUM MECHANIC: Dr. Sotero Pablo. ANESTHESIA: General endotracheal. COMPLICATIONS: None. ESTIMATED BLOOD LOSS: 400 mL. DESCRIPTION OF PROCEDURE: With the patient lying in bed in the supine position under good general endotracheal anesthesia, the abdomen was prepped with Betadine solution and draped in the usual manner. A lower midline incision was made, was carried down through the subcutaneous tissue down to the midline fascia. Midline fascia was opened. The peritoneum was opened and the abdomen was entered. Exploration of the intra-abdominal cavity immediately showed the colon at the level of the mid sigmoid colon to be stuck to the left side of the bladder representing the area of the fistula. There was a lot of inflammatory reaction in the area and the sigmoid colon was rather thick and there were multiple diverticula in the sigmoid colon present. The rest of the abdominal exploration was otherwise within normal limits. Left colon was then mobilized off of the lateral gutter and the splenic flexure was brought down. The colon was then divided at the level of the descending colon above where all of the diverticula were present. Mesentery of the colon was then slowly and carefully divided with the Enseal device. The left ureter was identified and preserved and the left colon was totally mobilized off of the left gutter. At this point, the attachment to the bladder was attacked. This was slowly and carefully cut down and the bladder fistula was readily identified at this point. Once this was done, the distal colon below all of the diverticula was divided with an application of the JAMES stapler and the colon was sent for pathological examination. The bladder was then debrided back to normal tissue and was then closed in 3 layers using 4-0 Monocryl for the mucosa, 3-0 Monocryl for the muscularis, and 3-0 Monocryl for the peritoneum and serosa giving us a satisfactory closure without any problems. The descending colon was then brought up to the rectosigmoid junction and anastomosis was performed with a posterior row of 3-0 silks. The staple lines were removed and an internal row of 3-0 chromic was used. Gloves and instruments were then changed and the anastomosis was completed with another anterior seromuscular 3-0 silks. The whole area was thoroughly irrigated. Perfect hemostasis was ascertained. A 10 flat Shad-Chua drain was then brought out through a right lower quadrant incision and sutured to the skin with 2-0 silk. Hemostasis was ascertained and the omentum was used to separate the anastomosis, which was clearly away from the bladder. The abdomen was then closed in layers. The peritoneum was closed with a running suture of #1 Vicryl, the midline fascia was closed with a running suture of #1 PDS, and the skin was closed with clips. A dressing was applied. The sponge, lap, and needle count was correct. Patient tolerated the procedure well and returned to the recovery room in stable condition. Job#: [id number] JEREMÍAS
--- NOTE | 2017-05-27 16:25 | Discharge Summary ---
ADMITTING DIAGNOSIS: Diverticulitis with colovesical fistula. DISCHARGE DIAGNOSIS: Diverticulitis with colovesical fistula. OPERATION PERFORMED: Exploratory laparotomy, low anterior resection with partial cystectomy. Complications none. This 81-year-old male was admitted to the hospital with history of having recurrent bouts of diverticulitis and colovesical fistula. Physical examination at time of admission was otherwise unremarkable. Laboratory data was within normal limits. Patient was taken to surgery on the day of admission where he underwent an uneventful exploratory laparotomy with low anterior resection, take down of colovesical fistula and a partial cystectomy. Postoperatively the patient did very well. He remained afebrile. Vital signs were stable. He did develop short bout of supraventricular tachycardia which was controlled with metoprolol. Cardiology consult was obtained for this purpose. The patient continued to do very well and on the 3rd postoperative day his NG tube was removed and he was started on a clear liquid diet, which was advanced to a regular diet. Finally, on 04/01/2017 with the patient being improved, vital signs being stable, his wounds healing nicely, eating a regular diet and having normal bowel movements he was discharged to go home to be followed at the office at a later date. MANA POLO MD Job#: [id number]
== END 2017-04-01 19:55 | disposition home or self-care (01) | DRG 330 ==
LOC: OR 08:20 → ICU 15:00 → MED/SURG 03-29 21:45
PROVIDERS: ADMIT Surgery; ATTEND Surgery
PROC: 30233N1 Transfusion of Nonautologous Red Blood Cells into Peripheral Vein, Percutaneous Approach (ICD-10-PCS; 2017-03-24)
PROC: 0DTN0ZZ Resection of Sigmoid Colon, Open Approach (ICD-10-PCS; 2017-03-24)
PROC: 0TBB0ZZ Excision of Bladder, Open Approach (ICD-10-PCS; 2017-03-24)
PROC: 3E0M05Z Introduction of Adhesion Barrier into Peritoneal Cavity, Open Approach (ICD-10-PCS; principal; 2017-03-24 10:00)
DX: K57.92 Diverticulitis of intestine, part unspecified, without perforation or abscess without bleeding (principal); N32.1 Vesicointestinal fistula; N17.9 Acute kidney failure, unspecified; I47.1 Supraventricular tachycardia; E86.0 Dehydration; L98.8 Other specified disorders of the skin and subcutaneous tissue; I10 Essential (primary) hypertension; N40.0 Benign prostatic hyperplasia without lower urinary tract symptoms; H40.9 Unspecified glaucoma
CPT/HCPCS: 36415; 36430; 71010; 71020; 80048; 83735; 85014; 85018; 85025; 86850; 86900; 86920; 88307; 96367; 96374; 96376; J0694; J1100; J1170; J1940; J2001; J2270; J2370; J2405; J2543; J3480; J7030; J7050; P9016

== ENCOUNTER 2018-06-06 12:42 | Emergency (ER) | payer OTHER ==
[~2018-06-06] VITALS: Ht 180.3 cm; Wt 99.8 kg
[~2018-06-06 12:42] MED LIST changes: +BRIMONIDINE TART5 ML OP; +DORZOLAMIDE-TIM10 ML OP; -HEPARIN SOD/SOD CHLORIDE 0 ML ONE; +LATANOPROST2.5 ML OP
--- OUTSIDE RECORDS SUMMARY | 2018-06-06 12:44 | XMS REPORT ---
Author Author [facility] Address Unknown Phone Unavailable Care Team Providers Care Legal Director Name Role Phone Thierry POLO Unavailable Unavailable Problems This patient has no known problems. Allergies, Adverse Reactions, Alerts This patient has no known allergies or adverse reactions. Medications This patient has no known medications. Results Test Description Test Time Test Comments Text Results Atomic Results Result Comments CHEST SINGLE (PORTABLE) [place] [address] Patient Name: MIGUEL LUGO MR #: [id number] : 1935 Age/Sex: 81/M Req #: [id number] Adm Physician: MANA POLO MD Ordered by: NATALIE LACEY MD Report #: [id number] Location: ICU Room/Bed: ICU [facility] Procedure: [id number] DX/CHEST SINGLE (PORTABLE) Exam Date: 03/26/17 Exam Time: 1425 REPORT STATUS: Signed PROCEDURE: A single AP view of the chest. COMPARISON: None. INDICATIONS: DESATURATION OF BLOOD FINDINGS: Lines/tubes: Enteric tube is noted below the left hemidiaphragm.. Lungs: The lungs are hypoinflated. Patchy right basal opacities, likely reflect atelectasis. There is partial obscuration of the left hemidiaphragm, which may represent left pleural effusion and associated atelectasis or consolidation. Pleura: No right pleural effusion. Heart and mediastinum: Mildly prominent cardiac silhouette, partly due to AP projection Bones: No acute bony abnormality. IMPRESSION: 1. hypoinflated lungs with right basilar atelectatic changes. Likely left pleural effusion and associated atelectasis or consolidation. Luis Woods M.D. Dictated by: Luis Woods M.D. on 03/26/2017 at 17:16 Electronically approved by: Luis Woods M.D. on 03/26/2017 at 17:16 Dictated By: LUIS WOODS MD 15 Transcribed By: NEHA on 03/26/171715 COPY TO: NATALIE LACEY MD CHEST 2 VIEWS [place] [address] Patient Name: MIGUEL LUGO MR #: [id number] : 1935 Age/Sex: 81/M Req #: [id number] Adm Physician: Ordered by: MANA POLO MD Report #: [id number] Location: OR Room/Bed: Procedure: [id number] DX/CHEST 2 VIEWS Exam Date: 03/18/17 Exam Time: 1115 REPORT STATUS: Signed PROCEDURE: Frontal and lateral views of the chest. COMPARISON: None. INDICATIONS: PREOPERATIVE CHEST XRAY FOR FISTULA REPAIR FINDINGS: Lines/tubes: None. Lungs: Limited by rotation and shallow inspiration. There is no evidence of pneumonia or pulmonary edema. Pleura: There is no pleural effusion or pneumothorax. Heart and mediastinum: Cardiac silhouette is mildly enlarged. Bones: No acute bony abnormality. Degenerative changes of the thoracic spine. IMPRESSION: 1. No acute cardiopulmonary disease. Dictated by: Robin Dotson M.D. on 03/18/2017 at 13:07 Electronically approved by: Robin Dotson M.D. on 03/18/2017 at 13:07 Dictated By: ROBIN DOTSON MD 130 Transcribed By: NEHA on 03/18/17 1307 COPY TO: MANA POLO MD
--- OUTSIDE RECORDS SUMMARY | 2018-06-06 12:45 | XMS REPORT ---
Author Organization Unknown Address [address] [place] [address] Phone [phone] Care Team Providers Care State Comptroller Name Role Phone SHASTA "MORENO" DAVID LACKEY 3 [phone] EARL JANG MD 105 [phone] MANA POLO MD 107 [phone] Allergies Code Code System Name Reaction Severity Status Onset 2551 RxNorm Ciprofloxacin Hallucinations Moderate Active 07/08/2017 Other Moderate Active 5933 RxNorm Iodine Other Moderate Active Medications Name Status Start Date Stop Date acyclovir 400 mg tablet Active Not available amoxicillin 500 mg capsule Completed 12/09/2016 benzonatate 150 mg capsule Take 1 capsule 3 times a day by oral route for 10 days. Completed 10/17/2016 bisoprolol 5 mg-hydrochlorothiazide 6.25 mg tablet Take 1 tablet by mouth daily Active Not available brimonidine 0.15 % eye drops Active Not available brimonidine 0.2 % eye drops Active Not available cephalexin 500 mg capsule Active Not available ciprofloxacin 500 mg tablet Completed 10/10/2016 clarithromycin 500 mg tablet Completed 05/08/2017 clonazepam 0.25 mg disintegrating tablet Completed 07/08/2017 clonazepam 0.5 mg disintegrating tablet take 1 tablet by mouth three times a day as needed Active Not available codeine 10 mg-guaifenesin 100 mg/5 mL oral liquid Take 7.5 mL every 4-6 hours by oral route for 3 days. Completed 12/18/2016 Constulose 10 gram/15 mL oral solution Active Not available Depo-Medrol 80 mg/mL suspension for injection Take 1 mL every day by injection route. Completed 12/18/2016 Dexilant 60 mg capsule, delayed release Active Not available dorzolamide 22.3 mg-timolol 6.8 mg/mL eye drops Active Not available doxazosin 8 mg tablet Active Not available doxycycline hyclate 100 mg tablet Active Not available erythromycin 500 mg tablet Completed 05/08/2017 fluticasone 50 mcg/actuation nasal spray,suspension Active Not available gabapentin 600 mg tablet Completed 10/10/2016 hydrocodone 5 mg-acetaminophen 325 mg tablet Completed 05/08/2017 ibuprofen 800 mg tablet Active Not available lactulose 10 gram/15 mL syrup TAKE 30 ML BY MOUTH TWICEA DAY. Completed 05/27/2016 latanoprost 0.005 % eye drops Active Not available lisinopril 20 mg tablet Completed 07/08/2017 metformin 850 mg tablet Active Not available metoprolol tartrate 25 mg tablet Active Not available metronidazole 500 mg tablet Active Not available mupirocin 2 % topical ointment Active Not available neomycin 500 mg tablet Completed 05/08/2017 nitrofurantoin monohydrate/macrocrystals 100 mg capsule Completed 12/18/2016 omeprazole 40 mg capsule,delayed release TAKE 1 CAP TWICE A DAY Active Not available pantoprazole 40 mg tablet,delayed release Completed 05/08/2017 ranitidine 150 mg tablet Take 1 tablet every day by oral route as directed for 90 days. Completed 02/12/2017 sildenafil (antihypertensive) 20 mg tablet take 1 to 5 tablets once, as needed, about 15 mins prior to sexual activity Active Not available sulfamethoxazole 800 mg-trimethoprim 160 mg tablet Completed 08/21/2017 tamsulosin 0.4 mg capsule 1 tab qHS Completed 02/12/2017 tramadol 50 mg tablet Active Not available TriLyte With Flavor Packets 420 gram oral solution Completed 06/10/2017 Notes: Unable to reconcile, pt did not bring meds CP 08/21/17 Problems Name Status Onset Date Source Mixed Hyperlipidemia Active 03/24/2015 History Megaloblastic Anemia Active 03/24/2015 History Mood Disorder Active 03/24/2015 History Hypertensive Disorder Active 03/24/2015 History Large Prostate Active 03/24/2015 History Finding of Esophagus Unknown 03/24/2015 History Primary Open Angle Glaucoma Active 06/13/2015 History 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 Adult Health Examination Unknown 10/24/2016 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 03/11/2017 Blepharospasm Active 03/11/2017 Constipation Active 03/11/2017 Arteriosclerosis of Aorta Active 07/07/2017 Procedures Date Name Performed by Cholecystectomy Notes: 1983 Information not available 05/27/2016 Electrocardiogram [facility] [address] [facility] [address] [place] [address] (Work Place) 05/27/2016 XR, Chest, 2 View [facility] ([facility]) [address] [place], [place] [id number] (Work Place) 01/24/2017 XR, Colon, W/ Contrast [facility] (Imaging) [address] [place] [address] (Work Place) 07/08/2017 Electrocardiogram [facility] [address] [facility] [address] [place] [address] (Work Place) Lab Results Date Name Specimen Result Interpretation Description Value Range Status Address 07/08/2017 Electrocardiogram Rate & Rhythm [facility]: [address] [facility] [address], [place] Qrs [facility]: [address] [address], [place] Interval [facility]: [address] [address], [place] QRS Duration [facility]: [address] [facility] [address], [place] QT Interval [facility]: [address] [facility] [address], [place] 05/08/2017 Ferritin, Serum or Plasma High Ferritin 514 NG/mL 20-380 NG/mL Final [facility]: [address] 05/08/2017 CMP, Serum or Plasma High Glucose 128 mg/dL 65-99 mg/dL Final [facility]: [address] Normal Urea Nitrogen (BUN) 12 mg/dL 7-25 mg/dL Final [facility]: [address] Normal Creatinine 0.91 mg/dL 0.70-1.11 mg/dL Final [facility]: [address] Normal eGFR Non-afr. Taiwanese 78 mL/min/1.73m2 > or=60 mL/min/1.73m2 Final [facility]: [address] Normal eGFR 91 mL/min/1.73m2 > or=60 mL/min/1.73m2 Final [facility]: [address] BUN/creatinine Ratio not applicable (calc) 6-22 (calc) Final [facility]: [address] [place] Verma, [place] Normal Sodium 142 mmol/L 135-146 mmol/L Final [facility]: [address] [facility] Potassium 4.7 mmol/L 3.5-5.3 mmol/L Final [facility]: [address] [facility] Normal Chloride 107 mmol/L 98-110 mmol/L Final [facility]: [address] [facility] Normal Carbon Dioxide 27 mmol/L 20-31 mmol/L Final [facility]: [address] [facility] Normal Calcium 9.1 mg/dL 8.6-10.3 mg/dL Final [facility]: [address] [facility] Normal Protein, Total 6.4 g/dL 6.1-8.1 g/dL Final [facility]: [address] [facility] Normal Albumin 4.0 g/dL 3.6-5.1 g/dL Final [facility]: [address] [facility] Normal Globulin 2.4 g/dL (calc) 1.9-3.7 g/dL (calc) Final [facility]: [address] [place] Harris [address] Normal Albumin/globulin Ratio 1.7 (calc) 1.0-2.5 (calc) Final [facility]: [address] [facility] High Bilirubin, Total 1.7 mg/dL 0.2-1.2 mg/dL Final [facility]: [address] [facility] Low Alkaline Phosphatase 29 U/L 40-115 U/L Final [facility]: 9055 [facility] Normal Ast 15 U/L 10-35 U/L Final [facility]: [address] [facility] Normal Alt 13 U/L 9-46 U/L Final [facility]: 9055 [facility] 05/08/2017 CBC W/ Auto Diff Normal White Blood Cell Count 5.1 thousand/uL 3.8-10.8 thousand/uL Final [facility]: [address]055 [facility] Low Red Blood Cell Count 2.96 million/uL 4.20-5.80 million/uL Final [facility]: [address]055 [place] Verma, [place] Low Hemoglobin 9.4 g/dL 13.2-17.1 g/dL Final [facility]: 9055 [place] Verma, [place] Low Hematocrit 28.0 % 38.5-50.0 % Final [facility]: 9055 [place] Haro Normal Mcv 94.6 fL 80.0-100.0 fL Final [facility]: 9055 [place] Verma, [place] Normal Mch 31.8 pg 27.0-33.0 pg Final [facility]: 9055 Marian[address] Verma, [place] Normal Mchc 33.6 g/dL 32.0-36.0 g/dL Final [facility]: [address] Haro Normal Rdw 14.2 % 11.0-15.0 % Final [facility]: 9055 [place] Haro Normal Platelet Count 159 thousand/uL 140-400 thousand/uL Final [facility]: 9055 [place] Haro Normal Mpv 12.4 fL 7.5-12.5 fL Final [facility]: 9055 Marianna Verma, [place] Normal Absolute Neutrophils 3269 cells/uL 8179-4009 cells/uL Final [facility]: 9055 [place] Verma, [place] Normal Absolute Lymphocytes 1168 cells/uL 850-3900 cells/uL Final [facility]: 9055 [place] Verma, [place] Normal Absolute Monocytes 530 cells/uL 200-950 cells/uL Final [facility]: [address]055 [place] Verma, [place] Normal Absolute Eosinophils 82 cells/uL 15-500 cells/uL Final [facility]: 9055 [place] Verma, [place] Normal Absolute Basophils 51 cells/uL 0-200 cells/uL Final [facility]: 9055 [place] Verma, [place] Normal Neutrophils 64.1 % Final [facility]: 9055 [place] Verma, [place] Normal Lymphocytes 22.9 % Final [facility]: 9055 [place] Verma [place] Normal Monocytes 10.4 % Final [facility]: 9055 [place] Haro Normal Eosinophils 1.6 % Final [facility]: [address] Normal Basophils 1.0 % Final [facility]: [address]055 [place] Harris [address] 05/08/2017 Lipid Panel, Serum Normal Cholesterol, Total 149 mg/dL <200 mg/dL Final [facility]: [address] [place] tara [address] Normal HDL Cholesterol 48 mg/dL >40 mg/dL Final [facility]: [address] Normal Triglycerides 104 mg/dL <150 mg/dL Final [facility]: [address] Normal LDL-cholesterol 81 mg/dL (calc) Final [facility]: [address] Normal Chol/hdlc Ratio 3.1 (calc) <5.0 (calc) Final [facility]: [address] Normal Non HDL Cholesterol 101 mg/dL (calc) <130 mg/dL (calc) Final [facility]: [address] 05/08/2017 Iron + Total Iron-binding Capacity (TIBC), Serum Normal Iron, Total 76 mcg/dL 50-180 mcg/dL Final [facility]: [address] Low Iron Binding Capacity 239 mcg/dL (calc) 250-425 mcg/dL (calc) Final [facility]: [address] Normal % Saturation 32 % (calc) 15-60 % (calc) Final [facility]: [address] [place] tara [address] 05/08/2017 Retic Count, Blood Normal Reticulocyte Count, Automated 1.7 % Final [facility]: [address] Normal Reticulocyte, Absolute [address]23[address] cells/uL [address] cells/uL Final [facility]: [address] [place] tara [address] 05/08/2017 Vitamin B12 + Folate, Serum or Blood Normal Vitamin B12 357 pg/mL 200-1100 pg/mL Final [facility]: [address] Normal Folate, Serum 15.2 NG/mL Final [facility]: [address] [place] tara [address] 12/09/2016 Iron + Total Iron-binding Capacity (TIBC), Serum Normal Iron, Total 113 mcg/dL 50-180 mcg/dL Final [facility]: [address] [place] Haro Low Iron Binding Capacity 243 mcg/dL (calc) 250-425 mcg/dL (calc) Final [facility]: [address] [place] Haro Normal % Saturation 47 % (calc) 15-60 % (calc) Final [facility]: 9055 Phillip Haro 12/09/2016 CBC W/ Auto Diff Normal White Blood Cell Count 4.9 thousand/uL 3.8-10.8 thousand/uL Final [facility]: 9055 [place] Verma [place] Low Red Blood Cell Count 3.13 million/uL 4.20-5.80 million/uL Final [facility]: 9055 [place] Verma [place] Low Hemoglobin 10.8 g/dL 13.2-17.1 g/dL Final [facility]: 9055 Marian[address] Verma [place] Low Hematocrit 31.9 % 38.5-50.0 % Final [facility]: 9055 [place] Verma [place] High Mcv 101.8 fL 80.0-100.0 fL Final [facility]: 9055 [place] Verma [place] High Mch 34.4 pg 27.0-33.0 pg Final [facility]: 9055 [place] Verma [place] Normal Mchc 33.8 g/dL 32.0-36.0 g/dL Final [facility]: 9055 Marian[address] Verma [place] Normal Rdw 13.2 % 11.0-15.0 % Final [facility]: 9055 Marian[address] Verma [place] Normal Platelet Count 167 thousand/uL 140-400 thousand/uL Final [facility]: 9055 [place] Verma [place] Normal Mpv 10.0 fL 7.5-12.5 fL Final [facility]: 9055 Marian[address] Verma [place] Normal Absolute Neutrophils 3278 cells/uL 4520-4706 cells/uL Final [facility]: [address] Marian[address] Verma [place] Normal Absolute Lymphocytes 1137 cells/uL 850-3900 cells/uL Final [facility]: [address] Verma [place] Normal Absolute Monocytes 338 cells/uL 200-950 cells/uL Final [facility]: [address] Verma [place] Normal Absolute Eosinophils 103 cells/uL 15-500 cells/uL Final [facility]: [address] [place] [address], [place] Normal Absolute Basophils 44 cells/uL 0-200 cells/uL Final [facility]: [address] [place] [address], [place] Normal Neutrophils 66.9 % Final [facility]: [address] t[address] [address], [place] Normal Lymphocytes 23.2 % Final [facility]: [address]055 [address] [address], [place] Normal Monocytes 6.9 % Final [facility]: [address]055 [address] [address], [place] Normal Eosinophils 2.1 % Final [facility]: [address] [place] [address], [place] Normal Basophils 0.9 % Final [facility]: [facility] Marianna t[address] [address], [place] 12/09/2016 Ferritin, Serum or Plasma High Ferritin 588 NG/mL 20-380 NG/mL Final [facility]: [facility] Marian[place] t[address] [address], [place] 12/09/2016 Vitamin B12 + Folate, Serum or Blood Normal Vitamin B12 790 pg/mL 200-1100 pg/mL Final [facility]: [address] [place] [address] [place] [address], [place] Normal Folate, Serum >24.0 NG/mL Final [facility]: [facility] [place] t[address] [address], [place] 08/26/2016 Culture, Urine Culture, Urine, Routine Final [facility]: [address] [place], [place] [address]Y[place] 08/26/2016 Culture, Urine Culture, Urine, Routine Final [facility]: [facility] [place] [address] [place] [address], [place] 08/20/2016 Iron + Total Iron-binding Capacity (TIBC), Serum Normal Iron, Total 114 mcg/dL 50-180 mcg/dL Final [facility]: [address] Iron Binding Capacity 195 mcg/dL (calc) 250-425 mcg/dL (calc) Final [facility]: [address] [place] dixon Normal % Saturation 58 % (calc) 15-60 % (calc) Final [facility]: [address] [place] 08/20/2016 Retic Count, Blood Normal Reticulocyte Count, Automated 1.2 % Final [facility] Reticulocyte, Absolute [address] cells/uL [address] cells/uL Final [facility]: [address], [place] 08/20/2016 CBC W/ Manual Diff Normal White Blood Cell Count 5.8 thousand/uL 3.8-10.8 thousand/uL Final [facility] [place] Low Red Blood Cell Count 2.76 million/uL 4.20-5.80 million/uL Final [facility] [address] [facility] [place] Low Hemoglobin 9.8 g/dL 13.2-17.1 g/dL Final [facility] [address] [facility] [place] Low Hematocrit 28.4 % 38.5-50.0 % Final [facility]: [address] [facility], [place] High Mcv 102.9 fL 80.0-100.0 fL Final [facility]: [address] [place] [address], [place] High Mch 35.5 pg 27.0-33.0 pg Final [facility]: [address] [facility], [place] Normal Mchc 34.5 g/dL 32.0-36.0 g/dL Final [facility]: [address] [facility], [place] Normal Rdw 14.1 % 11.0-15.0 % Final [facility]: [address] [facility], [place] Normal Platelet Count 200 thousand/uL 140-400 thousand/uL Final [facility]: [address] [place] [address], [place] Normal Mpv 10.0 fL 7.5-12.5 fL Final [facility]: [address] [facility] [place] Normal Absolute Neutrophils 3712 cells/uL 0471-7603 cells/uL Final [facility]: [address] [facility], [place] Normal Absolute Band Neutrophils 348 cells/uL 0-750 cells/uL Final [facility]: [address] [facility] [place] Normal Absolute Lymphocytes 986 cells/uL 850-3900 cells/uL Final [facility]: [address] [place] [address], [place] Normal Absolute Monocytes 464 cells/uL 200-950 cells/uL Final [facility]: [address] [place] [address], [place] Normal Absolute Eosinophils 290 cells/uL 15-500 cells/uL Final [facility]: [address] [place] [address], [place] Normal Absolute Basophils 0 cells/uL 0-200 cells/uL Final [facility]: [address] [place] [address], [place] Normal Neutrophils 64 % Final [facility]: [address] [place] [address], [place] Normal Band Neutrophils 6 % Final [facility]: [address] [place] [address], [place] Normal Lymphocytes 17 % Final [facility]: [address] [place] [address], [place] Normal Monocytes 8 % Final [facility]: [address] [place] [address], [place] Normal Eosinophils 5 % Final [facility]: [address] [place] [address], [place] Normal Basophils 0 % Final [facility]: [address] [place] [address], Yoim Comment(s) Final [facility]: [address] [place] [address], [place] 08/20/2016 Ferritin, Serum or Plasma High Ferritin 696 NG/mL 20-380 NG/mL Final [facility]: [address] [place] [address], [place] 08/20/2016 T4, Total, Serum Normal T4 (Thyroxine), Total 8.2 mcg/dL 4.5-12.0 mcg/dL Final [facility]: [address] [place] [address], [place] 08/20/2016 TSH, Serum or Plasma Normal Tsh 2.57 mIU/L 0.40-4.50 mIU/L Final [facility]: [address] [place] [address], [place] 08/20/2016 Vitamin B12 + Folate, Serum or Blood Normal Vitamin B12 554 pg/mL 200-1100 pg/mL Final [facility]: [address] [place] [address], Y[place] Normal Folate, Serum >24.0 NG/mL Final [facility]: [address] [place] [address], [place] 08/20/2016 Vitamin D, 25-Hydroxy, Total, Serum Normal Vitamin D,25-Oh,total,ia 49 NG/mL 30-100 NG/mL Final [facility]: [address] [place] [address], [place] 05/27/2016 Iron + TIBC + Ferritin, Serum Normal Iron, Total 118 mcg/dL 50-180 mcg/dL Final [facility]: [address] [place] [address], [place] Normal Iron Binding Capacity 250 mcg/dL (calc) 250-425 mcg/dL (calc) Final [facility]: [address] [facility], [place] Normal % Saturation 47 % (calc) 15-60 % (calc) Final [facility]: [address] [facility], [place] High Ferritin 628 NG/mL 20-380 NG/mL Final [facility]: [address] [facility], [place] 05/27/2016 Lipid Panel, Serum Normal Cholesterol, Total 181 mg/dL 125- 200 mg/dL Final [facility]: [address] [facility], [place] Normal HDL Cholesterol 57 mg/dL > or=40 mg/dL Final [facility]: [address] [facility], [place] Normal Triglycerides 100 mg/dL <150 mg/dL Final [facility]: [address] [facility], [place] Normal LDL-cholesterol 104 mg/dL (calc) <130 mg/dL (calc) Final [facility]: [address] [facility], [place] Normal Chol/hdlc Ratio 3.2 (calc) < or=5.0 (calc) Final [facility]: [address] [place] [address], [place] Normal Non HDL Cholesterol 124 mg/dL (calc) Final [facility]: [address] [place] [address], [place] 05/27/2016 CMP, Serum or Plasma High Glucose 125 mg/dL 65-99 mg/dL Final [facility]: [address] [facility], [place] Normal Urea Nitrogen (BUN) 11 mg/dL 7-25 mg/dL Final [facility]: [address] [place] [address], [place] Normal Creatinine 0.84 mg/dL 0.70-1.11 mg/dL Final [facility]: [address] [facility], [place] Normal eGFR Non-afr. Taiwanese 82 mL/min/1.73m2 > or=60 mL/min/1.73m2 Final [facility]: [address] [facility], [place] Normal eGFR 95 mL/min/1.73m2 > or=60 mL/min/1.73m2 Final [facility]: [address] [facility], [place] BUN/creatinine Ratio not applicable (calc) 6-22 (calc) Final [facility]: [address] [facility], [place] Normal Sodium 139 mmol/L 135-146 mmol/L Final [facility]: [address] [facility], [place] Normal Potassium 4.1 mmol/L 3.5-5.3 mmol/L Final [facility]: [address] [facility], [place] Normal Chloride 102 mmol/L 98-110 mmol/L [facility]: [address] [facility], [place] Normal Carbon Dioxide 25 mmol/L 20-31 mmol/L Final [facility]: [address] [facility], [place] Normal Calcium 9.7 mg/dL 8.6-10.3 mg/dL Final [facility]: [address] [facility], [place] Normal Protein, Total 7.2 g/dL 6.1-8.1 g/dL [facility]: [address] [facility], [place] Normal Albumin 4.4 g/dL 3.6-5.1 g/dL [facility] Lab: [address] [place] [address], [place] Normal Globulin 2.8 g/dL (calc) 1.9-3.7 g/dL (calc) Final [facility]: [address] [place] [address], [place] Normal Albumin/globulin Ratio 1.6 (calc) 1.0-2.5 (calc) [facility]: [address] [facility], [place] High Bilirubin, Total 1.3 mg/dL 0.2-1.2 mg/dL [facility]: [address] [place] [address], [place] Low Alkaline Phosphatase 33 U/L 40-115 U/L [facility]: [address] [place] [address], [place] Normal Ast 15 U/L 10-35 U/L [facility]: [address] [place] [address], [place] Normal Alt 16 U/L 9-46 U/L [facility]: [address] [facility], [place] 05/27/2016 CBC W/ Auto Diff Normal White Blood Cell Count 5.2 thousand/uL 3.8-10.8 thousand/uL [facility]: 66 [place] [address], Yomi Low Red Blood Cell Count 3.37 million/uL 4.20-5.80 million/uL [facility] Lab: [address] [facility], [place] Low Hemoglobin 11.7 g/dL 13.2-17.1 g/dL Final [facility] Lab: [address], [place] Low Hematocrit 34.4 % 38.5-50.0 % Final [facility] Lab: [address], [place] High Mcv 102.1 fL 80.0-100.0 fL Final [facility] Lab: [address], [place] High Mch 34.7 pg 27.0-33.0 pg Final [facility] Lab: [address], [place] Normal Mchc 34.0 g/dL 32.0-36.0 g/dL Final [facility] Lab: [address], Yomi Normal Rdw 13.0 % 11.0-15.0 % Final [facility] Lab: [address], [place] Normal Platelet Count 186 thousand/uL 140-400 thousand/uL Final [facility] Lab: [facility] [address], [place] Normal Mpv 10.1 fL 7.5-11.5 fL Final [facility] Lab: [address], [place]omi Normal Absolute Neutrophils 3671 cells/uL 9080-2477 cells/uL Final [facility] Lab: [address], Yomi Normal Absolute Lymphocytes 1045 cells/uL 850-3900 cells/uL Final [facility] Lab: [address], Y[place] Normal Absolute Monocytes 312 cells/uL 200-950 cells/uL Final [facility] Lab: [facility] [address], [place] Normal Absolute Eosinophils 156 cells/uL 15-500 cells/uL Final [facility] Lab: [address], [place] Normal Absolute Basophils 16 cells/uL 0-200 cells/uL Final [facility] Lab: [address], [place] Normal Neutrophils 70.6 % Final [facility] Lab: [address], [place] Normal Lymphocytes 20.1 % Final [facility] Lab: [address], [place] Normal Monocytes 6.0 % Final [facility] Lab: [address], [place] Normal Eosinophils 3.0 % Final [facility] Lab: [address], [place]omi Normal Basophils 0.3 % Final [facility] Lab: [address], Yomi 05/27/2016 Folate, Serum Normal Folate, Serum >24.0 NG/mL Final [facility] Lab: [address] [facility], Yomi 05/27/2016 T4, Total, Serum Normal T4 (Thyroxine), Total 8.8 mcg/dL 4.5-12.0 mcg/dL Final [facility] Lab: [address] [place] [address], Yomi 05/27/2016 TSH, Serum or Plasma Normal Tsh 1.90 mIU/L 0.40-4.50 mIU/L Final [facility] Lab: [address] [place] [address], Yomi 05/27/2016 Vitamin B12, Serum High Vitamin B12 >2000 pg/mL 200-1100 pg/mL Final [facility] Lab: [address] [place] [address], Yomi 05/27/2016 PSA, Serum or Plasma Normal PSA, Total 0.4 NG/mL < or=4.0 NG/mL Final [facility] Lab: [address] [place] [address], Yomi Urinalysis, Dipstick Color Color dark yellow [facility]: [address] [facility] [address], [place] Color Appearance clear [facility]: [address] [facility] [address], [place] Color Glucose negative [facility]: [address] [facility] [address], [place] Color Bilirubin negative [facility]: [address]873 [facility] [address], [place] Color Ketones negative [facility]: [address]21 [facility] [address], [place] Color Specific Shirland 1.015 [facility]: [address]283 [facility] [address], [place] Color Blood negative [facility]: [address]88 [facility] [address], [place] Color PH 6.5 [facility]: [address] [facility], [place] Color Protein negative [facility] [place]: [address] [facility], [place] Color Urobilinogen 1 [facility]: [address]368 [facility] [address], [place] Color Nitrites negative [facility]: [address] [facility], [place] Color Leukocytes negative [facility]: [address]18 [facility] [address], [place] Urinalysis, Dipstick Color Color light yellow [facility]: [address] [facility], [place] Color Appearance clear [facility]: [address]53 [facility] [address], [place] Color Glucose negative [facility] [place]: [address] [place] Bilirubin negative [facility] [place]: [address], [place] Ketones negative [facility] [place]: [address] [place] Color Specific [place] 1.010 [facility] [place]: [address] [place] Blood negative [facility] [place]: [address] [place] Color PH 5.5 [facility] [place]: [address] [place] Protein negative [facility] [place]: [address] [place] Color Urobilinogen 0.2 [facility] [place]: [address], [place] Color Nitrites negative [facility] [place]: [address], [place] Color Leukocytes negative [facility] [place]: [address], [place] Urinalysis, Dipstick Color Color light yellow [facility] [place]: [address], [place] Color Appearance clear [facility] [place]: [address], [place] Color Glucose negative [facility] [place]: [address], [place] Color Bilirubin negative [facility] [place]: [address], [place] Color Ketones negative [facility] [place]: [address], [place] Color Specific [place] 1.030 [facility] [place]: [address], [place] Color Blood trace [facility] [place]: [address], [place] Color PH 5.5 [facility] [place]: [address] [place] Protein negative [facility] [place]: [address] [place] Color Urobilinogen 1 [facility] [place]: [address], [place] Color Nitrites negative [facility] [place]: [address], [place] Color Leukocytes trace [facility] [place]: [address], [place] Urinalysis, Dipstick Color Color yellow [facility] [place]: [address], [place] Color Appearance clear [facility] [place]: [address], [place] Color Glucose negative [facility] [place]: [address], [place] Color Bilirubin negative [facility] [place]: [address], [place] Color Ketones negative [facility]: [address] [facility] [address], [place] Color Specific [place] 1.025 [facility]: [address]65 [facility] [address], [place] Color Blood negative [facility]: [address]45 [facility] [address], [place] Color PH 5.5 [facility]: [address]289 [facility] [address], [place] Color Protein negative [facility]: [address]48 [facility] [address], [place] Color Urobilinogen 0.2 [facility] [address]15 [facility] [address], [place] Color Nitrites negative [facility]: [address]43 [facility] [address], [place] Color Leukocytes trace [facility]: 44641 [facility] [address], [place] Electrocardiogram Rate & Rhythm [facility]: [address] [facility] [address], [place] Qrs [facility]: [address] [place] [address], [place] Interval [facility]: [address] [place] [address], [place] QRS Duration [facility]: [address] [place] [address], [place] QT Interval [facility]: [address] [place] [address], [place] Past Encounters 08/21/2017 Blepharospasm; Hypertensive Disorder; Immunization; Blood Glucose Abnormal; Benzodiazepine Dependence; Gastroesophageal Reflux Disease without Esophagitis; Megaloblastic Anemia; Screening for Malignant Neoplasm of Colon RICHARD Suarez: [address] [place] [address], Ph. 07/21/2017 Beryl Iglesias: [address] [address], Ph. 07/08/2017 Adult Health Examination; Body Mass Index 30+ - Obesity; Pain in Right Hip Joint; Hypertensive Disorder; Arteriosclerosis of Aorta; Mixed Hyperlipidemia; Primary Open Angle Glaucoma; Diverticular Disease of Colon; Megaloblastic Anemia; Large Prostate; Moderate Recurrent Major Depression; Blepharospasm; Genital Herpes Simplex; Constipation; Advance Directive Discussed with Patient; Depression Screening; Ulcer of Foot; Gastroenteritis; Screening for Malignant Neoplasm of Prostate; Screening for Malignant Neoplasm of Colon; Left Lower Quadrant Pain; Impotence of Organic Origin Shasta Schultz MD: [address] [place] [address], [address] [address], Ph. 06/19/2017 Hypertensive Disorder; Mixed Hyperlipidemia Beryl Iglesias: 9055 [facility] [facility], [facility] [address], [place] [address], Ph. 06/10/2017 Body Mass Index 30+ - Obesity; Hypertensive Disorder; Genital Herpes Simplex; Seasonal Allergic Rhinitis; Large Prostate; Blepharospasm; Mood Disorder; Arteriosclerosis of Aorta; Basal Cell Carcinoma of Skin; Primary Open Angle Glaucoma Shasta Schultz MD: 14319 [facility], [place] [address], [place] [address], Ph. 05/21/2017 Beryl Iglesias: 9055 [facility] [facility], [address] [address], Ph. 05/08/2017 Vesicorectal Fistula; Hypertensive Disorder; Gastroesophageal Reflux Disease without Esophagitis; Megaloblastic Anemia; Abnormal Urine Odor; Influenza Vaccination REMEDIOS Ferrera: [address] [facility], [address] [address], Ph. 05/07/2017 Diann Sanchez: 9055 [facility], [address] [address], Ph. 04/09/2017 Diann Sanchez: 9055 [facility], [address] [address], Ph. 03/11/2017 Blepharospasm; Constipation; Genital Herpes Simplex; Pain in Left Knee RICHARD Hope: [address] [facility], [place] [address], [place] [address], Ph. 02/12/2017 Pain in Right Hip Joint; Postoperative Care Shasta Schultz MD: 94644 [facility], [address] [address], Ph. 01/01/2017 Pre-surgery Evaluation; Vesicorectal Fistula; Mixed Hyperlipidemia; Diverticular Disease of Colon; Megaloblastic Anemia; Large Prostate; Dysplastic Nevus of Skin Shasta Schultz MD: [address] [address], Ph. 12/25/2016 Vesicorectal Fistula; Diverticular Disease of Colon; Body Mass Index 30+ - Obesity Shasta Schultz MD: [address] [address], Ph. 12/18/2016 Megaloblastic Anemia; Large Prostate; Arteriosclerosis of Aorta; Vesicocolic Fistula; Hypertensive Disorder RICHARD Hope: [address] [address], Ph. 12/09/2016 Anemia Due to Chronic Blood Loss; Vesicocolic Fistula; Diverticular Disease of Colon; Hypertensive Disorder; Megaloblastic Anemia Shasta Schultz MD: [address] [address], Ph. 10/17/2016 Acute Upper Respiratory Infection RICHARD Hope: [address] [address], Ph. 10/10/2016 Large Prostate; Blepharospasm; Diverticular Disease of Colon; Hypertensive Disorder; Pain in Right Hip Joint; Impaired Glucose Tolerance; Gastroesophageal Reflux Disease without Esophagitis; Mass of Stomach RICHARD Hope: [address] [address], Ph. 09/06/2016 Dysuria; Recurrent Urinary Tract Infection RICHARD Hope: [address] [address], Ph. 08/26/2016 Dysuria; Acute Urinary Tract Infection RICHARD Hope: [address] [address], Ph. 08/20/2016 Dysuria; Megaloblastic Anemia; Fatigue; Acute Urinary Tract Infection RICHARD Hope: [address] [address], Ph. 07/29/2016 Hypertensive Disorder; Seasonal Allergic Rhinitis; Diverticular Disease of Colon; Lower Urinary Tract Symptoms Due to Benign Prostatic Hypertrophy; Primary Open Angle Glaucoma; Mixed Hyperlipidemia; Blepharospasm; Pain in Right Hip Joint Shasta Schultz MD: [address]50 [facility], [facility] [address] [address], Ph. 06/26/2016 Megaloblastic Anemia; Impaired Glucose Tolerance; Dehydration Kim Vallejo PA: [address] [facility], [facility] [address] [address], Ph. 06/11/2016 Cellulitis of Lower Limb Kim Vallejo PA: 37907 [facility], [facility] [address] [address], Ph. 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 Social History Smoking Status Former Smoker Notes: Quit 2010 Vaccine List Vaccine Type influenza, high dose seasonal 05/08/20170.5 mL influenza, injectable, quadrivalent 04/24/2015 pneumococcal polysaccharide PPV23 05/27/20160.5 mL Plan of Care Patient Instructions It was good to see you in the office today for your Medicare Annual Wellness Visit. You have been provided some information on healthy nutrition, including a diet rich in fruits and vegetables, minimizing simple carbohydrates, salt, and saturated fats. I want to encourage regular cardiovascular exercise such as walking at least 30 minutes daily, 5 times per week. Please remember to schedule any preventive health measures that we talked about today. You have also been provided education on fall prevention and community- based lifestyle interventions to help reduce health risks and promote healthy living in your [facility] folder. Screening Recommendations 1. Vaccines Pneumococcal: discussed today and information sent with patient in their [facility] health folder Influenza: discussed today and information sent with patient in their [facility] health folder Shingles: discussed today and information sent with patient in their [facility] health folder Tetanus: discussed today and information sent with patient in their [facility] health folder 2. Prostate Screening: discussed today and information sent with patient in their [facility] health folder 3. Colorectal cancer Screening Colonoscopy: discussed today and information sent with patient in their [facility] health folder Fecal Occult Blood: discussed today and information sent with patient in their [facility] health folder 4. Bone Mass Measurement: discussed today 5. Eye Exam Screening: discussed today 6. Cholesterol Screening: discussed today 7. Diabetes Screening: discussed today It was good to see you in the office today for your Medicare Annual Wellness Visit. You have been provided some information on healthy nutrition, including a diet rich in fruits and vegetables, minimizing simple carbohydrates, salt, and saturated fats. I want to encourage regular cardiovascular exercise such as walking at least 30 minutes daily, 5 times per week. Please remember to schedule any preventive health measures that we talked about today. You have also been provided education on fall prevention and community- based lifestyle interventions to help reduce health risks and promote healthy living in your [facility] folder. Reminders Provider Appointments None recorded. Lab None recorded. Referral None recorded. Procedures None recorded. Surgeries None recorded. Imaging None recorded. Vitals 08/21/2017 11:30AM Est Patient Height Weight BMI Blood Pressure 5 ft 9 in 210 lbs 31 kg/m2 128/71 mm[Hg] 07/08/2017 11:30AM AWV Height Weight BMI Blood Pressure 5 ft 9 in 217 lbs 32 kg/m2 (1) 93/59 mm[Hg] (2) 89/59 mm[Hg] 06/10/2017 01:30PM Est Patient Height Weight BMI Blood Pressure 5 ft 9 in 214.4 lbs 31.7 kg/m2 135/52 mm[Hg] 05/08/2017 11:15AM Est Patient Height Weight BMI Blood Pressure 5 ft 9 in 223.4 lbs 33 kg/m2 137/73 mm[Hg] 03/11/2017 11:00AM Est Patient Height Weight BMI Blood Pressure 5 ft 9 in 230 lbs 34 kg/m2 135/78 mm[Hg] 02/12/2017 01:45PM Est Patient Height Weight BMI Blood Pressure 5 ft 9 in 230 lbs 34 kg/m2 138/77 mm[Hg] 01/01/2017 04:00PM Est Patient Height Weight BMI Blood Pressure 5 ft 9 in 226 lbs 33.4 kg/m2 136/74 mm[Hg] 12/25/2016 01:30PM Est Patient Height Weight BMI Blood Pressure 5 ft 9 in 227 lbs 33.5 kg/m2 124/67 mm[Hg] 12/18/2016 11:00AM Work In Same Day Height Weight BMI Blood Pressure 5 ft 9 in 229 lbs 33.8 kg/m2 120/62 mm[Hg] 12/09/2016 01:30PM Est Patient Height Weight BMI Blood Pressure 5 ft 9 in 228 lbs 33.7 kg/m2 131/75 mm[Hg] 10/17/2016 11:15AM Est Patient Height Weight BMI Blood Pressure 5 ft 9 in 232 lbs 34.3 kg/m2 119/73 mm[Hg] 10/10/2016 11:15AM Est Patient Height Weight BMI Blood Pressure 5 ft 9 in 229 lbs 33.8 kg/m2 146/78 mm[Hg] 09/06/2016 11:15AM Est Patient Height Weight BMI Blood Pressure 5 ft 9 in 232 lbs 34.3 kg/m2 135/72 mm[Hg] 08/26/2016 11:30AM Est Patient Height Weight BMI Blood Pressure 5 ft 9 in 225 lbs 33.2 kg/m2 125/74 mm[Hg] 08/20/2016 11:15AM Est Patient Height Weight BMI Blood Pressure 5 ft 9 in 233 lbs 34.4 kg/m2 146/74 mm[Hg] 07/29/2016 11:30AM Est Patient Height Weight BMI Blood Pressure 5 ft 9 in 232.2 lbs 34.3 kg/m2 142/74 mm[Hg] 06/26/2016 11:00AM Est Patient Height Weight BMI Blood Pressure 5 ft 9 in 228 lbs 33.7 kg/m2 133/69 mm[Hg] 06/11/2016 04:00PM Est Patient Height Weight BMI Blood Pressure 5 ft 9 in 232 lbs 34.3 kg/m2 140/77 mm[Hg] 05/27/2016 11:00AM [employer] Height Weight BMI Blood Pressure 5 ft 9 in 230 lbs 34 kg/m2 146/82 mm[Hg] 04/24/2015 Height Weight BMI Blood Pressure 6 ft 232.8 lbs 31.57 kg/m2 128/84 mm[Hg] 04/11/2015 Height Weight BMI Blood Pressure 6 ft 231.8 lbs 31.43 kg/m2 124/76 mm[Hg] 03/24/2015 Height Weight BMI Blood Pressure 6 ft 229.6 lbs 31.14 kg/m2 128/82 mm[Hg] 02/10/2015 Height Weight BMI Blood Pressure 6 ft 229.4 lbs 31.11 kg/m2 122/64 mm[Hg] 12/14/2014 Height Weight BMI Blood Pressure 6 ft 229.6 lbs 31.14 kg/m2 127/73 mm[Hg] 11/14/2014 Height Weight BMI Blood Pressure 6 ft 227.4 lbs 30.84 kg/m2 126/72 mm[Hg] 10/14/2014 Height Weight BMI Blood Pressure 6 ft 222.6 lbs 30.19 kg/m2 134/76 mm[Hg] 07/15/2014 Height Weight BMI Blood Pressure 6 ft 232.4 lbs 31.52 kg/m2 120/70 mm[Hg] 05/23/2014 Height Weight BMI Blood Pressure 6 ft 228.4 lbs 30.97 kg/m2 120/60 mm[Hg] 03/17/2014 Height Weight BMI Blood Pressure 6 ft 231.2 lbs 31.35 kg/m2 110/70 mm[Hg] 02/15/2014 Height Weight BMI Blood Pressure 6 ft 228.4 lbs 30.97 kg/m2 104/54 mm[Hg] 01/05/2014 Height Weight 6 ft 230 lbs 12/03/2013 Height Weight 6 ft 230 lbs 10/05/2013 Height Weight 6 ft 230.6 lbs 08/26/2013 Height Weight 6 ft 229 lbs 08/05/2013 Height Weight 6 ft 229 lbs 07/08/2013 Height Weight 6 ft 228.6 lbs 06/07/2013 Height Weight 6 ft 228.3 lbs 05/07/2013 Height Weight 6 ft 223 lbs 04/07/2013 Height Weight 6 ft 226 lbs 03/22/2013 Height Weight 6 ft 226.4 lbs 02/15/2013 Height Weight 6 ft 234 lbs 01/08/2013 Height Weight 6 ft 232.2 lbs 12/09/2012 Height Weight 6 ft 234.2 lbs 10/28/2012 Height Weight 6 ft 235.6 lbs 08/24/2012 Height Weight 6 ft 233.8 lbs 07/20/2012 Height Weight 6 ft 230 lbs 06/17/2012 Height Weight 6 ft 230.8 lbs
[2018-06-06] MEDS ORDERED: OMEPRAZOLE40 MG PO (13:17)
[2018-06-06] MEDS ORDERED: HYDROCHLOROTHIA25 MG PO (13:17)
[2018-06-06] MEDS ORDERED: ZEBETA10 MG PO (13:17)
[2018-06-06] MEDS ORDERED: ACYCLOVIR400 MG PO (13:17)
[2018-06-06] MEDS ORDERED: TIMOPTIC 0.5%1 EACH OP (13:17)
[2018-06-06 13:22] LABS: BASOPHILS % 0.1 % (0.0-1.0); EOSINOPHILS # (AUTO) 0.1 (0.0-0.4); EOSINOPHILS % 1.1 % (0.0-6.0); HEMATOCRIT 22.6 % (38.2-49.6); HEMOGLOBIN 9.7 g/dL (14.0-18.0); LYMPHOCYTES # (AUTO) 0.7 (1.0-3.2); LYMPHOCYTES % 9.2 % (18.0-39.1); MEAN CORPUSCULAR HEMOGLOBIN 44.3 pg (28-32); MEAN CORPUSCULAR HGB CONC 42.9 g/dL (31-35); MEAN CORPUSCULAR VOLUME 103.2 fL (81-99); MONOCYTES # (AUTO) 0.6 (0.2-0.8); MONOCYTES % 8.2 % (4.4-11.3); PLATELET COUNT 193 x10e3/uL (140-360); RED BLOOD COUNT 2.19 x10e6/uL (4.3-5.7); RED CELL DISTRIBUTION WIDTH 12.9 % (11.7-14.4)
[2018-06-06 13:33] LABS: ALBUMIN 3.6 g/dL (3.5-5.0); ANION GAP 13.1 mmol/L (8-16); CREATININE, SERUM 1.59 mg/dL (0.72-1.25); POTASSIUM 4.1 mmol/L (3.5-5.1)
[2018-06-06 15:50] VITALS: BP 125/56
== END 2018-06-06 15:55 | disposition home or self-care (01) ==
LOC: ER 12:42
DX: K92.2 Gastrointestinal hemorrhage, unspecified (principal); D63.1 Anemia in chronic kidney disease
CPT/HCPCS: 36415; 80053; 82270; 85025; 99283

== ENCOUNTER 2021-11-25 12:42 | Emergency (ER) | payer OTHER ==
[~2021-11-25] VITALS: Ht 180.3 cm; Wt 99.8 kg
[~2021-11-25 12:42] MED LIST changes: +ACYCLOVIR400 MG PO; +HYDROCHLOROTHIA25 MG PO; +OMEPRAZOLE40 MG PO; +TIMOPTIC 0.5%1 EACH OP; +ZEBETA10 MG PO
[2021-11-25 13:47] LABS: BASOPHILS % 0.6 % (0.0-1.0); EOSINOPHILS # (AUTO) 0.1 (0.0-0.4); EOSINOPHILS % 2.1 % (0.0-6.0); HEMOGLOBIN 9.2 g/dL (14.0-18.0); LYMPHOCYTES # (AUTO) 1.1 (1.0-3.2); LYMPHOCYTES % 17.4 % (18.0-39.1); MEAN CORPUSCULAR HEMOGLOBIN 33.8 pg (28-32); MEAN CORPUSCULAR HGB CONC 32.9 g/dL (31-35); MEAN CORPUSCULAR VOLUME 102.9 fL (81-99); MONOCYTES # (AUTO) 0.5 (0.2-0.8); MONOCYTES % 7.7 % (4.4-11.3); NEUTROPHILS # (AUTO) 4.5 (2.1-6.9); PLATELET COUNT 187 x10e3/uL (140-360); RED BLOOD COUNT 2.72 x10e6/uL (4.3-5.7); RED CELL DISTRIBUTION WIDTH 13.1 % (11.7-14.4)
[2021-11-25 14:05] LABS: INR 1.05; PROTHROMBIN TIME 14.7 seconds (11.9-14.5)
[2021-11-25 14:06] LABS: PARTIAL THROMBOPLASTIN TIME 40.7 seconds (23.8-35.5)
[2021-11-25 14:18] LABS: ALBUMIN 3.4 g/dL (3.5-5.0); ANION GAP 11.3 mmol/L (8-16); CALCIUM 8.9 mg/dL (8.4-10.2); CREATININE, SERUM 1.37 mg/dL (0.72-1.25); MAGNESIUM 1.8 MG/DL (1.3-2.1); POTASSIUM 4.3 mmol/L (3.5-5.1)
[2021-11-25 14:26] LABS: CREATINE KINASE MB 0.7 ng/mL (0-5.0)
[2021-11-25 17:59] VITALS: BP 126/67
== END 2021-11-25 18:01 | disposition home or self-care (01) ==
LOC: ER 13:02
DX: S00.83XA Contusion of other part of head, initial encounter (principal); S50.02XA Contusion of left elbow, initial encounter; S20.212A Contusion of left front wall of thorax, initial encounter; S60.221A Contusion of right hand, initial encounter; S70.01XA Contusion of right hip, initial encounter; W01.0XXA Fall on same level from slipping, tripping and stumbling without subsequent striking against object, initial encounter; Y93.01 Activity, walking, marching and hiking; Y92.89 Other specified places as the place of occurrence of the external cause; I10 Essential (primary) hypertension; Z85.828 Personal history of other malignant neoplasm of skin; D64.9 Anemia, unspecified
CPT/HCPCS: 36415; 70450; 71250; 72125; 72192; 80053; 82550; 82553; 83735; 83880; 84484; 85025; 85610; 85730; 99284

== ENCOUNTER 2022-02-17 13:05 | Emergency (ER) | payer OTHER ==
[~2022-02-17] VITALS: Ht 180.3 cm; Wt 99.8 kg
[2022-02-17 13:45] LABS: BASOPHILS % 0.2 % (0.0-1.0); EOSINOPHILS % 0.8 % (0.0-6.0); HEMATOCRIT 25.4 % (38.2-49.6); HEMOGLOBIN 9.2 g/dL (14.0-18.0); LYMPHOCYTES # (AUTO) 0.7 (1.0-3.2); LYMPHOCYTES % 13.8 % (18.0-39.1); MEAN CORPUSCULAR HEMOGLOBIN 37.6 pg (28-32); MEAN CORPUSCULAR HGB CONC 36.2 g/dL (31-35); MEAN CORPUSCULAR VOLUME 103.7 fL (81-99); MONOCYTES # (AUTO) 0.4 (0.2-0.8); MONOCYTES % 7.9 % (4.4-11.3); NEUTROPHILS # (AUTO) 3.9 (2.1-6.9); NEUTROPHILS % 77.1 % (38.7-80.0); PLATELET COUNT 199 x10e3/uL (140-360); RED BLOOD COUNT 2.45 x10e6/uL (4.3-5.7); RED CELL DISTRIBUTION WIDTH 12.7 % (11.7-14.4)
[2022-02-17 14:12] LABS: ALBUMIN 3.6 g/dL (3.5-5.0); ALBUMIN/GLOBULIN RATIO 1.2 (0.8-2.0); ANION GAP 13.7 mmol/L (8-16); CALCIUM 8.7 mg/dL (8.4-10.2); CREATININE, SERUM 1.15 mg/dL (0.72-1.25)
[2022-02-17 14:13] LABS: POTASSIUM 4.7 mmol/L (3.5-5.1)
[2022-02-17 14:18] LABS: CREATINE KINASE MB 0.3 ng/mL (0-5.0)
[2022-02-17 14:44] LABS: INR 1.01; PROTHROMBIN TIME 14.2 seconds (11.9-14.5)
== END 2022-02-17 16:07 | disposition other institution (70) ==
LOC: ER 13:15
DX: S06.5X0A Traumatic subdural hemorrhage without loss of consciousness, initial encounter (principal); E87.1 Hypo-osmolality and hyponatremia; W18.39XA Other fall on same level, initial encounter; Y93.01 Activity, walking, marching and hiking; Y92.89 Other specified places as the place of occurrence of the external cause; Z20.822 Contact with and (suspected) exposure to COVID-19; D64.9 Anemia, unspecified; I10 Essential (primary) hypertension; Z85.828 Personal history of other malignant neoplasm of skin
CPT/HCPCS: 36415; 70450; 71045; 72125; 80053; 82550; 82553; 83880; 84484; 85025; 85610; 93005; 99284; U0002